=== PATIENT | male | born 1945 | race Caucasian/White ===

== ENCOUNTER 2017-01-14 05:12 | Emergency (ER) | payer MEDICARE ==
[~2017-01-14] VITALS: Ht 162.6 cm; Wt 84.0 kg
[~2017-01-14 05:12] MED LIST: ACIPHEX20 MG OR; AMOXICILLIN500 MG OR; AMOXICILLIN500 MG PO; ANTIVERT PO; ANTIVERT12.5 MG PO; AUGMENTIN875TAB PO; CEPHALEXIN500 MG PO; CHLOR-TRIMETON4 MG PO; CIPRODEX1 ML OT; CIPROFLOXACN500 MG PO; FLEXERIL OR; LOMOTIL2.5 MG PO; LORTAB 5-325 MG1 TAB PO; LORTAB5 OR; LORTAB5 PO; MUCINEX D1 TAB OR; NEXIUM20 M1 OR; NEXIUM40 M1 OR; NEXIUM40 M1 PO; ONDANSETRON4 MG PO; PEPCID40 MG OR; PREVACID30 M1 OR; PRILOSEC20 MG PO; PRILOSEC40 MG PO; ROBITUSSIN AC10 ML PO; ROBITUSSIN200 MG/10 PO; TAMSULOSIN0.4 MG PO; ULTRAM50 M1 PO; ULTRAM50 MG OR; XALATAN0.005 % OP; ZANTAC150 M1 PO; ZOFRAN ODT4 MG OR; ZOFRAN ODT4 MG PO
[2017-01-14 06:49] LABS: INFLUENZA A NONE DETECTED (NONE DETECT); INFLUENZA B NONE DETECTED (NONE DETECT)
[2017-01-14] MEDS ORDERED: FLONASE NASAL50 MCG (07:06)
[2017-01-14] MEDS ORDERED: ZITHROMAX250 MG PO (07:06)
[2017-01-14 07:44] VITALS: BP 149/78
== END 2017-01-14 07:44 | disposition home or self-care (01) ==
LOC: ED 05:12
PROVIDERS: Emergency Medicine
DX: J06.9 Acute upper respiratory infection, unspecified (principal); J32.9 Chronic sinusitis, unspecified; R09.81 Nasal congestion; R05 Cough

== ENCOUNTER 2017-02-28 09:07 | Emergency (ER) | payer MEDICARE ==
[~2017-02-28] VITALS: Ht 162.6 cm; Wt 82.0 kg
[~2017-02-28 09:07] MED LIST changes: +FLONASE NASAL50 MCG; +ZITHROMAX250 MG PO
[2017-02-28] MEDS ORDERED: OMEPRAZOLE10 MG PO (09:21)
[2017-02-28 09:44] LABS: HEMATOCRIT 43.7 % (39.0-50.0); HEMOGLOBIN 14.5 g/dl (14.0-18.0); IMMATURE GRANULOCYTES 0.2 % (0.0-1.0); MEAN CORPUSCULAR HGB 30.9 pG CALC (26.0-32.0); MEAN CORPUSCULAR HGB CONC 33.2 g/L CALC (32.0-36.0); NEUT# 6.71 thou/uL (1.82-7.42); RED BLOOD COUNT 4.7 mill/uL (4.70-6.10); RED CELL DISTRI WIDTH 12.1 % (11.5-15.5)
[2017-02-28 10:00] LABS: ALBUMIN 4.2 g/dL (3.2-5.0); ALKALINE PHOSPHATASE 74 u/l (38-126); AMYLASE 93 u/l (30-110); ANION GAP 15 (6-22 (CALC)); BILIRUBIN, TOTAL 0.6 mg/dL (0.0-1.4); BUN 17 mg/dL (8-23); BUN/CREATININE RATIO 15 (12-20 (CALC)); CALCIUM 9.4 mg/dL (8.4-10.2); CARBON DIOXIDE 23 mmol/l (22-30); CHLORIDE 104 mmol/l (95-108); CREATININE 1.1 mg/dL (0.7-1.3); GFR > 60 ML/MIN (>=60 (CALC)); GFR FOR AFR.AMER. > 60 ML/MIN (>=60 (CALC)); GLUCOSE 146 mg/dL (82-115); LIPASE 107 u/l (23-300); POTASSIUM 4.2 mmol/l (3.5-5.1); SGOT/AST 38 u/l (19-48); SGPT/ALT 32 u/l (11-66); SODIUM 138 mmol/l (137-146); TOTAL PROTEIN 7.2 g/dL (6.3-8.2)
[2017-02-28 10:13] LABS: MYOGLOBIN 54 ng/mL (0 - 121)
[2017-02-28 12:05] VITALS: BP 119/54
== END 2017-02-28 12:13 | disposition home or self-care (01) ==
LOC: ED 09:07
PROVIDERS: Emergency Medicine
DX: R10.13 Epigastric pain (principal); K29.70 Gastritis, unspecified, without bleeding; K43.9 Ventral hernia without obstruction or gangrene; K40.90 Unilateral inguinal hernia, without obstruction or gangrene, not specified as recurrent; K57.30 Diverticulosis of large intestine without perforation or abscess without bleeding; K21.9 Gastro-esophageal reflux disease without esophagitis; R11.0 Nausea
CPT/HCPCS: Q9967; S0164

== ENCOUNTER 2017-04-02 06:07 | Day surgery (SDC) | payer MEDICARE ==
[~2017-04-02] VITALS: Ht 162.6 cm; Wt 81.2 kg
[~2017-04-02 06:07] MED LIST changes: +CARAFATE PO; +OMEPRAZOLE10 MG PO; +PREVACID15 M3 PO
[2017-04-02 08:24] VITALS: BP 121/67
== END 2017-04-02 08:39 | disposition home or self-care (01) ==
LOC: ENDO 06:07 → ORM 11:15 → ENDO 11:15
PROVIDERS: ATTEND Internal Medicine Gastroenterology
PROC: 0DB48ZX Excision of Esophagogastric Junction, Via Natural or Artificial Opening Endoscopic, Diagnostic (ICD-10-PCS; principal; 2017-04-02)
DX: K21.0 Gastro-esophageal reflux disease with esophagitis (principal); R14.0 Abdominal distension (gaseous); R13.10 Dysphagia, unspecified; R10.13 Epigastric pain; K44.9 Diaphragmatic hernia without obstruction or gangrene; Q39.8 Other congenital malformations of esophagus; K29.70 Gastritis, unspecified, without bleeding; K22.8 Other specified diseases of esophagus; K57.90 Diverticulosis of intestine, part unspecified, without perforation or abscess without bleeding; Z86.010 Personal history of colon polyps

== ENCOUNTER 2017-05-24 06:21 | Day surgery (SDC) | payer MEDICARE ==
[~2017-05-24] VITALS: Ht 162.6 cm; Wt 81.6 kg
[~2017-05-24 06:21] MED LIST changes: +ARTIFICIAL TEAR1 OP; +ERYTHROMYCIN O3.5 GM OP
[2017-05-24] MEDS ORDERED: OXYCOD-APAP1 TAB PO (09:34)
[2017-05-24 10:14] VITALS: BP 157/73
== END 2017-05-24 10:18 | disposition home or self-care (01) ==
LOC: ORM 06:21
PROVIDERS: ATTEND Surgery
PROC: 0FT44ZZ Resection of Gallbladder, Percutaneous Endoscopic Approach (ICD-10-PCS; principal; 2017-05-24)
PROC: BF101ZZ Fluoroscopy of Bile Ducts using Low Osmolar Contrast (ICD-10-PCS; 2017-05-24)
DX: K81.1 Chronic cholecystitis (principal); K44.9 Diaphragmatic hernia without obstruction or gangrene; K21.0 Gastro-esophageal reflux disease with esophagitis; K29.70 Gastritis, unspecified, without bleeding; Q39.9 Congenital malformation of esophagus, unspecified
CPT/HCPCS: J2710; Q9967

== ENCOUNTER 2017-06-02 14:55 | Emergency (ER) | payer MEDICARE ==
[~2017-06-02] VITALS: Ht 162.6 cm; Wt 75.0 kg
[~2017-06-02 14:55] MED LIST changes: +OXYCOD-APAP1 TAB PO
[2017-06-02] MEDS ORDERED: KEFLEX500 M1 PO (15:39)
[2017-06-02 16:15] VITALS: BP 133/84
== END 2017-06-02 16:15 | disposition home or self-care (01) ==
LOC: ED 14:55
DX: Z48.02 Encounter for removal of sutures (principal); Z48.01 Encounter for change or removal of surgical wound dressing

== ENCOUNTER 2017-12-06 19:02 | Emergency (ER) | payer MEDICARE ==
[~2017-12-06] VITALS: Ht 162.6 cm; Wt 84.0 kg
[~2017-12-06 19:02] MED LIST changes: +KEFLEX500 M1 PO
[2017-12-06 20:45] LABS: HEMATOCRIT 40.1 % (39.0-50.0); HEMOGLOBIN 13.9 g/dl (14.0-18.0); IMMATURE GRANULOCYTES 0.2 % (0.0-1.0); MEAN CELL VOLUME 91.8 fL CALC (80.0-100.0); MEAN CORPUSCULAR HGB 31.8 pG CALC (26.0-32.0); MEAN CORPUSCULAR HGB CONC 34.7 g/L CALC (32.0-36.0); NEUT# 5.6 thou/uL (1.82-7.42); RED BLOOD COUNT 4.37 mill/uL (4.70-6.10); RED CELL DISTRI WIDTH 11.9 % (11.5-15.5)
[2017-12-06 20:46] LABS: URINE BILIRUBIN - DIPSTICK NEGATIVE (NEGATIVE); URINE BLOOD DIPSTICK NEGATIVE (NEGATIVE); URINE COLOR YELLOW; URINE GLUCOSE - DIPSTICK NEGATIVE (NEGATIVE); URINE KETONE NEGATIVE (NEGATIVE); URINE LEUK ESTERASE NEGATIVE (NEGATIVE); URINE NITRITE - DIPSTICK NEGATIVE (Negative); URINE PH 5.5 (4.5-8.0); URINE PROTEIN - DIPSTICK NEGATIVE (NEG-TRACE); URINE SPECIFIC GRAVITY 1.015; URINE UROBILINOGEN - DIPSTICK 0.2 E.U./dL (0.2)
[2017-12-06 20:47] LABS: URINE CLARITY CLEAR
[2017-12-06 20:57] LABS: ALBUMIN 4.1 g/dL (3.2-5.0); ALKALINE PHOSPHATASE 94 u/l (38-126); ANION GAP 16 (6-22 (CALC)); BILIRUBIN, TOTAL 0.3 mg/dL (0.0-1.4); BUN 14 mg/dL (8-23); BUN/CREATININE RATIO 13 (12-20 (CALC)); CARBON DIOXIDE 23 mmol/l (22-30); CHLORIDE 106 mmol/l (95-108); CREATININE 1.1 mg/dL (0.7-1.3); GFR > 60 ML/MIN (>=60 (CALC)); GFR FOR AFR.AMER. > 60 ML/MIN (>=60 (CALC)); POTASSIUM 4.1 mmol/l (3.5-5.1); SGOT/AST 40 u/l (19-48); SGPT/ALT 52 u/l (11-66); SODIUM 141 mmol/l (137-146); TOTAL PROTEIN 6.6 g/dL (6.3-8.2)
[2017-12-06] MEDS ORDERED: TORADOL PO (22:21)
[2017-12-06 22:36] VITALS: BP 142/79
== END 2017-12-06 22:44 | disposition home or self-care (01) ==
LOC: ED 19:02
PROVIDERS: Emergency Medicine
DX: K63.89 Other specified diseases of intestine (principal); R10.9 Unspecified abdominal pain

== ENCOUNTER 2018-02-07 12:29 | Observation (INO) | payer MEDICARE ==
[~2018-02-07] VITALS: Ht 162.6 cm; Wt 82.6 kg
[~2018-02-07 12:29] MED LIST changes: +TORADOL PO
--- NOTE | 2018-02-07 12:50 | NUR ---
PT AWARE OF BUSY ED AND NO AVAILABLE ROOMS AT THIS TIME. PT BACK TO WAITING ROOM WITH A STEADY GAIT TO AWAIT ROOM ASSIGNMENT.
--- NOTE | 2018-02-07 13:35 | NUR ---
PT AMBULATED TO ROOM WITH A STEADY GAIT.
--- NOTE | 2018-02-07 14:15 | NUR ---
IV ESTABLISHED. LABS DRAWN. EKG COMPLETED. @ BEDSIDE. PORT XR COMPLETED. PT C/O DIZZINESS OFF/ON x1+ WEEK. STATES HE WAKES UP WITH "YELLOW BOOGGIES" IN BOTH EYES. DENIES PAIN. DENIES SOB. DENIES COUGH. DENIES N/V/D. DENIES FALL OR LOC. @ BEDSIDE.
[2018-02-07 14:21] LABS: HEMOGLOBIN 14.2 g/dl (14.0-18.0); IMMATURE GRANULOCYTES 0.3 % (0.0-1.0); MEAN CELL VOLUME 92.7 fL CALC (80.0-100.0); MEAN CORPUSCULAR HGB 31.3 pG CALC (26.0-32.0); MEAN CORPUSCULAR HGB CONC 33.8 g/L CALC (32.0-36.0); NEUT# 6.13 thou/uL (1.82-7.42); RED BLOOD COUNT 4.53 mill/uL (4.70-6.10)
[2018-02-07 14:40] LABS: ALBUMIN 4.3 g/dL (3.2-5.0); ALKALINE PHOSPHATASE 79 u/l (38-126); ANION GAP 18 (6-22 (CALC)); BILIRUBIN, TOTAL 0.4 mg/dL (0.0-1.4); BUN 16 mg/dL (8-23); BUN/CREATININE RATIO 13 (12-20 (CALC)); CARBON DIOXIDE 25 mmol/l (22-30); CHLORIDE 101 mmol/l (95-108); CREATININE 1.2 mg/dL (0.7-1.3); GFR 60 ML/MIN (>=60 (CALC)); GFR FOR AFR.AMER. > 60 ML/MIN (>=60 (CALC)); POTASSIUM 4.4 mmol/l (3.5-5.1); SGOT/AST 41 u/l (19-48); SGPT/ALT 48 u/l (11-66); SODIUM 140 mmol/l (137-146); TOTAL PROTEIN 7.7 g/dL (6.3-8.2)
[2018-02-07 14:49] LABS: MYOGLOBIN 63 ng/mL (0 - 121)
--- NOTE | 2018-02-07 15:28 | NUR ---
PT UNABLE TO GIVE A URINE SAMPLE SINCE ARRIVAL GOING HOME TO GET SUPPLIES FOR PTS DENTURES, HIS PAJAMAS, & MED LIST.
--- NOTE | 2018-02-07 16:08 | NUR ---
SBAR PRINTED TO FLOOR
[2018-02-07] MEDS ORDERED: CHLOR-TRIMETON4 MG PO (16:11)
[2018-02-07] MEDS ORDERED: MECLIZINE25 MG PO (16:11)
--- NOTE | 2018-02-07 16:39 | NUR ---
DAUGHTER & @ BEDSIDE. PT DENIES S/S OF SYNCOPE SINCE ARRIVAL. WILL CONTINUE TO MONITOR. AWAITING ROOM ASSIGNMETN.
--- NOTE | 2018-02-07 16:53 | NUR ---
Admission Note Report Given to: Leticia Transported by: x Wheelchair Stretcher Transported with: x Nurse Transporter x Patent IV O2 x Raw Mill Operator
[2018-02-07 17:04] LABS: URINE BILIRUBIN - DIPSTICK NEGATIVE (NEGATIVE); URINE BLOOD DIPSTICK NEGATIVE (NEGATIVE); URINE COLOR YELLOW; URINE GLUCOSE - DIPSTICK NEGATIVE (NEGATIVE); URINE KETONE NEGATIVE (NEGATIVE); URINE LEUK ESTERASE NEGATIVE (NEGATIVE); URINE NITRITE - DIPSTICK NEGATIVE (Negative); URINE PROTEIN - DIPSTICK NEGATIVE (NEG-TRACE); URINE SPECIFIC GRAVITY <=1.005; URINE UROBILINOGEN - DIPSTICK 0.2 E.U./dL (0.2)
[2018-02-07 17:05] LABS: URINE CLARITY CLEAR
--- NOTE | 2018-02-07 17:05 | NUR ---
PT ARRIVED FROM ER VIA WC ACCOMPANIED BY STAFF. IV SITE IS FREE FROM REDNESS OR EDEMA. TELE MONITOR IN PLACE. PT IS AMBULATING IN THE ROOM.
--- NOTE | 2018-02-07 17:10 | NUR ---
PT TRANSFERED TO [facility] 269 IN STABLE CONDITION.
[2018-02-07 17:20] VITALS: BP 146/82
--- NOTE | 2018-02-07 17:30 | NUR ---
ASSESSMENT IS COMPLETED: IV SITE IS FREE FROM REDNESS OR EDEMA. HR IS REG,PULSES ARE STRONG X4, ABD IS SOFT WITH ACTIVE BS. CONTINUE TO OSBERVE AND MONITOR.
--- NOTE | 2018-02-07 19:00 | NUR ---
RECEIVED CHANGE OF SHIFT REPORT FROM DALLIN MOSLEY. PATIENT UP TO CHAIR IN ROOM. REPORTS HAVING SOME DISSINES WHENEVER HE GETS UP SUDDENLY. EDUCATE PT NO TO GET UP SLOWLY AND TO SIT AT BEDSIDE BEFORE STANDING UP. ORTHOSTATIC BP DONE: LYIN/71; SITTIN/83; & STANDING 148/81.
[2018-02-07 19:20] VITALS: BP 134/71
[2018-02-07 19:30] VITALS: BP 142/83
[2018-02-07 19:40] VITALS: BP 148/81
--- NOTE | 2018-02-07 19:50 | NUR ---
SPOKE WITH HIS AND MADE SURE SHE HAD THE CODE. IV SITE IS FREE FROM REDNESS OR EDEMA. CONTINUE TO OBSERVE AND MONITOR.
--- NOTE | 2018-02-08 | NUR ---
PATIENT RESTING QUIETLY. NO VOICED COMPLAINTS. NO APPATENT ACUTE DISTRESS NOTED.
[2018-02-08 00:20] VITALS: BP 112/62
--- NOTE | 2018-02-08 04:00 | NUR ---
PATIENT APPEARS TO BE ASLEEP QUIETLY. RESP EVEN AND NON-LABORED. NO APPARENT ACUTE CHANGES NOTED IN PT'S CONDITION.
[2018-02-08 04:20] VITALS: BP 113/65
[2018-02-08 07:55] VITALS: BP 138/72
--- NOTE | 2018-02-08 07:55 | NUR ---
PT IS SITTING UP IN THE CHAIR. NO DISTRESS NOTED. IV SITE IS FREE FROM REDNESS OR EDEMA. HR IS REG, PULSES ARE STRONG X4, ABD IS SOFT WITH ACTIVE BS. TELE MONITOR. CONTINUE TO OSBERVE AND MONITOR.
[2018-02-08 09:01] LABS: CHOLESTEROL HDL RATIO 4.6 (<4.4 (CALC))
[2018-02-08 09:22] LABS: TSH, 3RD GENERATION 2.39 uIU/mL (0.47 - 4.68)
[2018-02-08 11:31] VITALS: BP 145/73
--- NOTE | 2018-02-08 13:05 | NUR ---
PT RECEIVED DISCHARGE INSTRUCTIONS AND VERBALIZED UNDERSTANDING IV SITE DISCONTINUED CATHETER INTACT. NO REDNESS OR EDEMA. TELE MONITOR TAKEN OFF. CONTINUE TO OBSERVE AND MONITOR.
== END 2018-02-08 13:05 | disposition home or self-care (01) ==
LOC: ED 12:29 → ED-I 15:57 → ED 16:12 → MS2 16:13
PROVIDERS: Family Medicine; ADMIT Internal Medicine; ATTEND Internal Medicine
DX: R55 Syncope and collapse (principal); H40.9 Unspecified glaucoma; K21.9 Gastro-esophageal reflux disease without esophagitis; M19.90 Unspecified osteoarthritis, unspecified site; I25.10 Atherosclerotic heart disease of native coronary artery without angina pectoris; R42 Dizziness and giddiness; N40.1 Benign prostatic hyperplasia with lower urinary tract symptoms; R35.0 Frequency of micturition; R39.15 Urgency of urination; N39.43 Post-void dribbling; H61.23 Impacted cerumen, bilateral

== ENCOUNTER 2018-07-29 21:17 | Emergency (ER) | payer MEDICARE ==
[~2018-07-29] VITALS: Ht 162.6 cm; Wt 81.2 kg
[~2018-07-29 21:17] MED LIST changes: +MECLIZINE25 MG PO; -XALATAN0.005 % OP; +XALATAN0.005 % OU
[2018-07-29] MEDS ORDERED: PREVACID15 M1 PO (21:36)
[2018-07-29] MEDS ORDERED: PRED FORTE1 % OU (21:45)
[2018-07-29] MEDS ORDERED: BRIMONIDINE0.2 % OU (21:49)
[2018-07-29 21:55] VITALS: BP 156/75
== END 2018-07-29 21:55 | disposition home or self-care (01) ==
LOC: ED 21:17
DX: H10.13 Acute atopic conjunctivitis, bilateral (principal); M19.90 Unspecified osteoarthritis, unspecified site; K21.9 Gastro-esophageal reflux disease without esophagitis; I25.10 Atherosclerotic heart disease of native coronary artery without angina pectoris; H40.9 Unspecified glaucoma

== ENCOUNTER 2018-11-12 12:47 | Emergency (ER) | payer MEDICARE ==
[~2018-11-12] VITALS: Ht 162.6 cm; Wt 81.8 kg
[~2018-11-12 12:47] MED LIST changes: +BRIMONIDINE0.2 % OU; +PRED FORTE1 % OU; +PREVACID15 M1 PO
[2018-11-12] MEDS ORDERED: PRILOSEC20 MG PO (13:12)
[2018-11-12 13:20] LABS: HEMATOCRIT 40.9 % (39.0-50.0); HEMOGLOBIN 13.9 g/dl (14.0-18.0); IMMATURE GRANULOCYTES 0.2 % (0.0-5.0); MEAN CELL VOLUME 92.1 fL CALC (80.0-100.0); MEAN CORPUSCULAR HGB 31.3 pG CALC (26.0-32.0); NEUT# 5.73 thou/uL (1.82-7.42); RED BLOOD COUNT 4.44 mill/uL (4.70-6.10)
[2018-11-12 13:48] LABS: ANION GAP 16 (6-22 (CALC)); BUN 15 mg/dL (8-23); BUN/CREATININE RATIO 14 (12-20 (CALC)); CARBON DIOXIDE 22 mmol/l (22-30); CHLORIDE 105 mmol/l (95-108); GFR > 60 ML/MIN (>=60 (CALC)); GFR FOR AFR.AMER. > 60 ML/MIN (>=60 (CALC)); POTASSIUM 4.4 mmol/l (3.5-5.1); SODIUM 138 mmol/l (137-146)
[2018-11-12 15:37] VITALS: BP 125/60
== END 2018-11-12 15:41 | disposition home or self-care (01) ==
LOC: ED 12:47
PROVIDERS: Family Medicine
DX: R10.13 Epigastric pain (principal); R07.9 Chest pain, unspecified; R94.31 Abnormal electrocardiogram [ECG] [EKG]; I10 Essential (primary) hypertension; K21.9 Gastro-esophageal reflux disease without esophagitis
CPT/HCPCS: Q9967

== ENCOUNTER 2018-12-02 06:10 | Emergency (ER) | payer MEDICARE ==
[~2018-12-02] VITALS: Ht 162.6 cm; Wt 81.8 kg
[2018-12-02 07:06] LABS: URINE BILIRUBIN - DIPSTICK NEGATIVE (NEGATIVE); URINE BLOOD DIPSTICK NEGATIVE (NEGATIVE); URINE COLOR YELLOW; URINE GLUCOSE - DIPSTICK NEGATIVE (NEGATIVE); URINE KETONE NEGATIVE (NEGATIVE); URINE LEUK ESTERASE NEGATIVE (NEGATIVE); URINE NITRITE - DIPSTICK NEGATIVE (Negative); URINE PROTEIN - DIPSTICK NEGATIVE (NEG-TRACE); URINE UROBILINOGEN - DIPSTICK 0.2 E.U./dL (0.2)
[2018-12-02 07:06] LABS: HEMATOCRIT 41.3 % (39.0-50.0); HEMOGLOBIN 13.7 g/dl (14.0-18.0); IMMATURE GRANULOCYTES 0.2 % (0.0-5.0); MEAN CELL VOLUME 93.9 fL CALC (80.0-100.0); MEAN CORPUSCULAR HGB 31.1 pG CALC (26.0-32.0); MEAN CORPUSCULAR HGB CONC 33.2 g/L CALC (32.0-36.0); NEUT# 5.3 thou/uL (1.82-7.42); RED BLOOD COUNT 4.4 mill/uL (4.70-6.10); RED CELL DISTRI WIDTH 12.1 % (11.5-15.5)
[2018-12-02 07:19] LABS: ALBUMIN 4.1 g/dL (3.2-5.0); ALKALINE PHOSPHATASE 70 u/l (38-126); ANION GAP 14 (6-22 (CALC)); BILIRUBIN, TOTAL 0.5 mg/dL (0.0-1.4); BUN 16 mg/dL (8-23); BUN/CREATININE RATIO 15 (12-20 (CALC)); CARBON DIOXIDE 27 mmol/l (22-30); CHLORIDE 102 mmol/l (95-108); CREATININE 1.1 mg/dL (0.7-1.3); GFR > 60 ML/MIN (>=60 (CALC)); GFR FOR AFR.AMER. > 60 ML/MIN (>=60 (CALC)); POTASSIUM 4.3 mmol/l (3.5-5.1); SGOT/AST 29 u/l (19-48); SODIUM 139 mmol/l (137-146); TOTAL PROTEIN 6.7 g/dL (6.3-8.2)
[2018-12-02 07:31] LABS: MYOGLOBIN 39 ng/mL (0 - 121)
[2018-12-02 08:01] VITALS: BP 140/76
== END 2018-12-02 08:10 | disposition home or self-care (01) ==
LOC: ED 06:10
PROVIDERS: Family Medicine
DX: R42 Dizziness and giddiness (principal); I25.10 Atherosclerotic heart disease of native coronary artery without angina pectoris; K21.9 Gastro-esophageal reflux disease without esophagitis; R94.31 Abnormal electrocardiogram [ECG] [EKG]

== ENCOUNTER 2019-02-11 16:32 | Emergency (ER) | payer MEDICARE ==
[~2019-02-11] VITALS: Ht 162.6 cm; Wt 79.0 kg
[2019-02-11] MEDS ORDERED: LEVAQUIN500 MG PO (16:49)
[2019-02-11] MEDS ORDERED: PROVENTIL HFA IN (16:50)
[2019-02-11 16:53] VITALS: BP 134/77
== END 2019-02-11 16:53 | disposition home or self-care (01) ==
LOC: ED 16:32
DX: J06.9 Acute upper respiratory infection, unspecified (principal); J40 Bronchitis, not specified as acute or chronic; I25.10 Atherosclerotic heart disease of native coronary artery without angina pectoris

== ENCOUNTER 2019-07-02 13:33 | Emergency (ER) | payer MEDICARE ==
[~2019-07-02] VITALS: Ht 162.6 cm; Wt 80.0 kg
[~2019-07-02 13:33] MED LIST changes: +LEVAQUIN500 MG PO; +PROVENTIL HFA IN
[2019-07-02] MEDS ORDERED: KEFLEX500 M1 PO ×2 (14:19→14:31)
[2019-07-02 14:31] VITALS: BP 143/76
== END 2019-07-02 14:31 | disposition home or self-care (01) ==
LOC: ED 13:33
DX: L03.115 Cellulitis of right lower limb (principal)

== ENCOUNTER 2019-09-18 08:18 | Observation (INO) | payer MEDICARE ==
[~2019-09-18] VITALS: Ht 162.6 cm; Wt 82.0 kg
--- NOTE | 2019-09-18 08:20 | NUR ---
PT IMMEDIATELY TO ROOM FOR BEDSIDE TRIAGE
[2019-09-18 08:42] LABS: HEMATOCRIT 44.9 % (39.0-50.0); IMMATURE GRANULOCYTES 0.3 % (0.0-5.0); MEAN CELL VOLUME 92.4 fL CALC (80.0-100.0); MEAN CORPUSCULAR HGB 30.9 pG CALC (26.0-32.0); MEAN CORPUSCULAR HGB CONC 33.4 g/L CALC (32.0-36.0); NEUT# 6.28 thou/uL (1.82-7.42); RED BLOOD COUNT 4.86 mill/uL (4.70-6.10); RED CELL DISTRI WIDTH 11.9 % (11.5-15.5)
[2019-09-18 09:06] LABS: ANION GAP 15 (6-22 (CALC)); BUN 16 mg/dL (8-23); BUN/CREATININE RATIO 14 (12-20 (CALC)); CARBON DIOXIDE 23 mmol/l (22-30); CHLORIDE 103 mmol/l (95-108); CREATININE 1.2 mg/dL (0.7-1.3); GFR 59 ML/MIN (>=60 (CALC)); GFR FOR AFR.AMER. > 60 ML/MIN (>=60 (CALC)); POTASSIUM 4.2 mmol/l (3.5-5.1); SODIUM 137 mmol/l (137-146)
--- NOTE | 2019-09-18 09:30 | NUR ---
MEDICATED WITH ASPIRIN AND CARDIZEM IV ORDERED, CALL HERZOG WITHIN REACH.
--- NOTE | 2019-09-18 09:55 | NUR ---
SPOKEM WITH PT REGARDING LIVING WILL, HEALTH CARE SURROGATE ETC...ALL QUESTIONS ANSWERED AND CURRENTLY AT BEDSIDE.
[2019-09-18] MEDS ORDERED: NEOMYCIN/POLYMY1 SUS OU (10:01)
--- NOTE | 2019-09-18 11:18 | NUR ---
Admission Note Report Given to: DEBO Transported by: Wheelchair X Stretcher Transported with: X Nurse Transporter X Patent IV O2 X Mine Superintendent
--- NOTE | 2019-09-18 11:20 | NUR ---
AND DAUGHTER ACCOMPANIED PT TO FLOOR
--- NOTE | 2019-09-18 11:32 | NUR ---
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
[2019-09-18 11:45] VITALS: BP 161/85
--- NOTE | 2019-09-18 12:03 | NUR ---
LAB AT BEDSIDE
--- NOTE | 2019-09-18 12:12 | NUR ---
PT TRANSPOTED TO ECHO IN STABLE CONDITION VIA WHEELCHAIR ACCOMPANIED BY VOLUNTEER.
--- NOTE | 2019-09-18 12:47 | NUR ---
PT ARRIVED BACK TO MED/SURG ROOM 282 IN STABLE CONDITION VIA WHEELCHAIR ACCOMPANIED BY VOLUNTEER.
--- NOTE | 2019-09-18 14:13 | NUR ---
JORDON,ER PEER EDUCATOR CALLED TO NOTIFY NURSE THAT PT CONVERTED TO SR AT 1311.CONNER MACK,ANRP NOTIFIED AND NEW ORDER FOR EKG OBTAINED.WILL CONTINUE TO MONITOR
--- NOTE | 2019-09-18 14:21 | NUR ---
CONNER MACK,ANRP AT BEDSIDE
--- NOTE | 2019-09-18 15:02 | NUR ---
RT ANCELMO AT BEDSIDE OBTAINING EKG.
[2019-09-18 16:12] VITALS: BP 165/80
--- NOTE | 2019-09-18 17:00 | NUR ---
PT RESTING IN SEMI FOWLERS POSITION;PT DENIES ANY CURRENT PAIN OR DISCOMFORTS;RESPIRATIONS EVEN AND UNLABORED ON RA;TELE MONITORING IN PLACE;IV SITE TO RAC REMAINS PATENT;ASSESSMENT REMAINS UNCHANGED AT THIS TIME;ENCOURAGED PT TO CALL FOR ASSISTANCE IF NEEDED;CALL LIGHT IN REACH;WILL CONTINUE TO MONITOR
[2019-09-18 19:08] LABS: URINE BILIRUBIN - DIPSTICK NEGATIVE (NEGATIVE); URINE BLOOD DIPSTICK NEGATIVE (NEGATIVE); URINE COLOR YELLOW; URINE GLUCOSE - DIPSTICK NEGATIVE (NEGATIVE); URINE KETONE NEGATIVE (NEGATIVE); URINE LEUK ESTERASE NEGATIVE (NEGATIVE); URINE NITRITE - DIPSTICK NEGATIVE (Negative); URINE PROTEIN - DIPSTICK NEGATIVE (NEG-TRACE); URINE SPECIFIC GRAVITY 1.015; URINE UROBILINOGEN - DIPSTICK 0.2 E.U./dL (0.2)
--- NOTE | 2019-09-18 19:08 | NUR ---
RECEIVED REPORT FRTOM NURSE FRANCISCO PATIENT RESTING IN BED, WATCHING TV DENEIS PAIN OR DISCOMFORTS CALL LIGHT AT REACH.
[2019-09-18 19:40] VITALS: BP 148/89
--- NOTE | 2019-09-18 20:00 | NUR ---
PATIENT ALERT AND ORIENTED ABLE TO MAKE NEEDS KNOWN, AMBULATORY, REMAINS ON TELE SR 70, DENIES CHEST PAIN AT THIS TIME, WITH EVEN UNLABORED BREATHING, WITH SALINE LOCK ON RAC PATENT FLUSHES WELL, WILL CONTINUE TO MONITOR.
[2019-09-19 00:10] VITALS: BP 162/79
--- NOTE | 2019-09-19 00:55 | NUR ---
PATIENT AWAKE AT THIS TIME,DENIES PAIN OR DISCOMFORTS STATED IS JUST NOW READY FOR BED.CALL LIGHT AT REACH.
--- NOTE | 2019-09-19 04:03 | NUR ---
PATIENT APPEARS TO BE RESTING WITH EYES CLOSED, EASILY AWAKEN, DENIES PAIN OR DISCOMFORTS, WITH EVEN UNLABORED BREATHING CALL LIGHT AT REACH.
[2019-09-19 04:58] VITALS: BP 165/84
[2019-09-19 05:42] LABS: ANION GAP 15 (6-22 (CALC)); BUN 20 mg/dL (8-23); BUN/CREATININE RATIO 15 (12-20 (CALC)); CARBON DIOXIDE 24 mmol/l (22-30); CHLORIDE 103 mmol/l (95-108); CREATININE 1.3 mg/dL (0.7-1.3); GFR 54 ML/MIN (>=60 (CALC)); GFR FOR AFR.AMER. > 60 ML/MIN (>=60 (CALC)); HEMATOCRIT 43.1 % (39.0-50.0); HEMOGLOBIN 14.1 g/dl (14.0-18.0); IMMATURE GRANULOCYTES 0.2 % (0.0-5.0); MEAN CELL VOLUME 92.7 fL CALC (80.0-100.0); MEAN CORPUSCULAR HGB 30.3 pG CALC (26.0-32.0); MEAN CORPUSCULAR HGB CONC 32.7 g/L CALC (32.0-36.0); NEUT# 6.3 thou/uL (1.82-7.42); POTASSIUM 4.7 mmol/l (3.5-5.1); RED BLOOD COUNT 4.65 mill/uL (4.70-6.10); SODIUM 137 mmol/l (137-146)
[2019-09-19 05:43] VITALS: BP 148/82
[2019-09-19 05:48] LABS: CHOLESTEROL HDL RATIO 4.6 (<4.4 (CALC)); MAGNESIUM 2.2 mg/dL (1.6-2.3)
--- NOTE | 2019-09-19 07:05 | NUR ---
REPORT RECEIVED FROM JAZ VILLANUEVA;PT RESTING IN SEMI FOWLERS POSITION;INTRODUCED SELF TO PT AND POC DISCUSSED;RESPIRATIONS APPEAR EVEN AND UNLABORED ON RA;PT DENIES ANY CURRENT CHEST PRESSURE OR PAIN;TELE MONITORING IN PLACE;PT ENCOURAGED TO CALL FOR ASSISTANCE IF NEEDED;FALL PRECAUTIONS IN PLACE WITH BED IN THE LOWEST POSITION AND CALL LIGHT IN REACH;WILL CONTINUE TO MONITOR
[2019-09-19 08:58] VITALS: BP 153/92
--- NOTE | 2019-09-19 09:00 | NUR ---
PT OOB RESTING IN RECLINER WITH FAMILY AT BEDSIDE,A&O X3;VS OBTAINED AND ASSESSMENT COMPLETED;PT REPORTS EAGERNESS TO GO HOME, PT RE-ASSURED ON POC;PT DENIES ANY CURRENT CHEST PAIN OR PRESSURE,PAIN SCALE AND REPORTING EDUCATED;RESPIRATIONS EVEN AND UNLABORED ON RA,CLEAR LUNG SOUNDS;ABDOMEN SOFT ON PALPATION AND ACTIVE IN ALL 4 QUADRANTS;STRONG PEDAL PULSES WITH DISCOLORATION NOTED TO BLE;TELE MONITORING IN PLACE;#18G TO RAC FLUSHED AND PATENT,SITE APPEARS HEALTHY;PNEUMONIA VACCINE ADMINISTERED TO RIGHT ARM, CONSENT SIGNED AND PLACED IN CHART;PT DENIES ANY ADDITIONAL NEEDS AT THIS TIME AND IS ENCOURAGED TO CALL FOR ASSISTANCE IF NEEDED;CALL LIGHT IN REACH;WILL CONTINUE TO MONITOR
[2019-09-19 10:49] VITALS: BP 155/87
--- NOTE | 2019-09-19 10:51 | NUR ---
AT BEDSIDE DISCUSSING POC WITH PT AND FAMILY.
[2019-09-19] MEDS ORDERED: ELIQUIS5 MG PO (10:54)
[2019-09-19] MEDS ORDERED: LOPRESSOR25 MG PO (10:54)
--- NOTE | 2019-09-19 11:40 | NUR ---
ALL DISCHARGE INSTRUCTIONS PROVIDED AT THIS TIME;RX FOR METOPROLOL AND ELIQUS PROVIDED AND PT INSTRUCTED TO TAKE DIRECTED.PT INSTRUCTED TO MONITOR HR,BP AND FOLLOW UP WITH PCP;IV SITE REMOVED WITH CATHETER INTACT AND TELE MONITORING D/C;PT DENIES ANY ADDITIONAL NEEDS AT THIS TIME;WHEELCHAIR TO BE PROVIDED FOR D.C HOME;PT TO BE TRANSPORTED HOME BY SPOUSE.WORK RELEASE PROVIDED TO RETURN 09/20/19
--- NOTE | 2019-09-19 11:58 | NUR ---
Discharge instructions given. Patient verbalizes understanding of same. Discharged in stable condition via Ambulatory to Home with family. All belongings sent with pt. Pt ambulated with a steady gait to lobby for d/c home accompanied by family.
== END 2019-09-19 11:58 | disposition home or self-care (01) ==
LOC: ED 08:18 → ED-I 09:31 → ED 09:55 → MS2 09:56
PROVIDERS: Family Medicine; Nurse Practitioner Family; ADMIT Internal Medicine; ATTEND Internal Medicine
DX: I48.91 Unspecified atrial fibrillation (principal); I25.10 Atherosclerotic heart disease of native coronary artery without angina pectoris; K21.9 Gastro-esophageal reflux disease without esophagitis; N40.0 Benign prostatic hyperplasia without lower urinary tract symptoms; I73.9 Peripheral vascular disease, unspecified; H81.10 Benign paroxysmal vertigo, unspecified ear; Z87.891 Personal history of nicotine dependence; R07.9 Chest pain, unspecified
CPT/HCPCS: G0378

== ENCOUNTER 2019-09-23 21:36 | Emergency (ER) | payer MEDICARE ==
[~2019-09-23] VITALS: Ht 162.6 cm; Wt 90.0 kg
[~2019-09-23 21:36] MED LIST changes: +ELIQUIS5 MG PO; +LOPRESSOR25 MG PO; +NEOMYCIN/POLYMY1 SUS OU
[2019-09-23 22:20] LABS: HEMATOCRIT 40.7 % (39.0-50.0); HEMOGLOBIN 13.5 g/dl (14.0-18.0); IMMATURE GRANULOCYTES 0.2 % (0.0-5.0); MEAN CELL VOLUME 92.5 fL CALC (80.0-100.0); MEAN CORPUSCULAR HGB 30.7 pG CALC (26.0-32.0); MEAN CORPUSCULAR HGB CONC 33.2 g/L CALC (32.0-36.0); NEUT# 8.3 thou/uL (1.82-7.42); RED BLOOD COUNT 4.4 mill/uL (4.70-6.10); RED CELL DISTRI WIDTH 11.9 % (11.5-15.5)
[2019-09-23 22:43] LABS: ALBUMIN 4.3 g/dL (3.2-5.0); ALKALINE PHOSPHATASE 74 u/l (38-126); ANION GAP 15 (6-22 (CALC)); BILIRUBIN, TOTAL 0.4 mg/dL (0.0-1.4); BUN 18 mg/dL (8-23); BUN/CREATININE RATIO 14 (12-20 (CALC)); CARBON DIOXIDE 22 mmol/l (22-30); CHLORIDE 104 mmol/l (95-108); CREATININE 1.2 mg/dL (0.7-1.3); GFR 59 ML/MIN (>=60 (CALC)); GFR FOR AFR.AMER. > 60 ML/MIN (>=60 (CALC)); POTASSIUM 4.1 mmol/l (3.5-5.1); SGOT/AST 31 u/l (19-48); SODIUM 137 mmol/l (137-146); TOTAL PROTEIN 7.3 g/dL (6.3-8.2)
[2019-09-23 23:29] LABS: C. DIFFICILE TOXIN A&B NEGATIVE (NEGATIVE)
[2019-09-24] MEDS ORDERED: LOMOTIL2.5 MG PO (00:04)
[2019-09-24] MEDS ORDERED: LIBRAX1 CAP PO (00:04)
[2019-09-24 00:18] VITALS: BP 149/63
== END 2019-09-24 00:18 | disposition home or self-care (01) ==
LOC: ED 21:36
PROVIDERS: Family Medicine
DX: A08.4 Viral intestinal infection, unspecified (principal); I48.91 Unspecified atrial fibrillation; I25.10 Atherosclerotic heart disease of native coronary artery without angina pectoris

== ENCOUNTER 2019-12-02 | Inpatient (IN) | payer MEDICARE ==
--- NOTE | 2019-12-01 21:39 | NUR ---
PATIENT AMBULATORY TO ROOM 12. UNDRESSED INTO A GOWN. AWAITING MD VILLEDA.
--- NOTE | 2019-12-01 22:24 | NUR ---
URINE COLLECTED AND PT MEDICATED FOR PAIN 2/10 SHARP CRAMPY PAIN AND NAUSEA.
[2019-12-01 22:27] LABS: HEMOGLOBIN 14.5 g/dl (14.0-18.0); IMMATURE GRANULOCYTES 0.3 % (0.0-5.0); MEAN CELL VOLUME 91.5 fL CALC (80.0-100.0); MEAN CORPUSCULAR HGB 30.1 pG CALC (26.0-32.0); NEUT# 9.73 thou/uL (1.82-7.42); RED BLOOD COUNT 4.81 mill/uL (4.70-6.10); RED CELL DISTRI WIDTH 12.3 % (11.5-15.5)
[2019-12-01 22:35] LABS: URINE BILIRUBIN - DIPSTICK NEGATIVE (NEGATIVE); URINE BLOOD DIPSTICK NEGATIVE (NEGATIVE); URINE COLOR YELLOW; URINE GLUCOSE - DIPSTICK NEGATIVE (NEGATIVE); URINE KETONE NEGATIVE (NEGATIVE); URINE LEUK ESTERASE NEGATIVE (NEGATIVE); URINE NITRITE - DIPSTICK NEGATIVE (Negative); URINE PH 5.5 (4.5-8.0); URINE PROTEIN - DIPSTICK NEGATIVE (NEG-TRACE); URINE UROBILINOGEN - DIPSTICK 0.2 E.U./dL (0.2)
[2019-12-01 22:38] LABS: ALBUMIN 4.5 g/dL (3.2-5.0); ALKALINE PHOSPHATASE 82 u/l (38-126); AMYLASE 92 u/l (30-110); BUN 17 mg/dL (8-23); BUN/CREATININE RATIO 15 (12-20 (CALC)); CHLORIDE 101 mmol/l (95-108); CREATININE 1.1 mg/dL (0.7-1.3); GFR > 60 ML/MIN (>=60 (CALC)); GFR FOR AFR.AMER. > 60 ML/MIN (>=60 (CALC)); LIPASE 124 u/l (23-300); POTASSIUM 3.9 mmol/l (3.5-5.1); SGOT/AST 34 u/l (19-48); SODIUM 137 mmol/l (137-146); TOTAL PROTEIN 7.7 g/dL (6.3-8.2)
[2019-12-01 22:44] LABS: ANION GAP 13 (6-22 (CALC)); BILIRUBIN, TOTAL 0.7 mg/dL (0.0-1.4); CARBON DIOXIDE 27 mmol/l (22-30)
--- NOTE | 2019-12-01 23:19 | NUR ---
PT STATES NO CHANGE IN PAIN. TO CT.
--- NOTE | 2019-12-01 23:39 | NUR ---
PT BACK FROM CT WAITING ON RESULTS.
[~2019-12-02] MED LIST changes: +LIBRAX1 CAP PO
--- NOTE | 2019-12-02 00:01 | NUR ---
DR ARGUELLES IN TO GO OVER RESULTS WITH PT.
--- NOTE | 2019-12-02 00:18 | NUR ---
ARPITAAR SENT TO M/S
--- NOTE | 2019-12-02 00:40 | NUR ---
PT MEDICATED WITH MORPHINE FOR PAIN 06/10 PT DID NOT LIKE THE SENSATION FROM MEDICATION, PT INSTRUCTED TO TAKE SLOW BREATHS AND NOT TO MAKE ANY SUDDEN MOVEMENTS WITH HIS HEAD. SENSATION PASSED AFTER A FEW MINUTES
--- NOTE | 2019-12-02 01:39 | NUR ---
REPORT REC FROM MELITA SEBASTIAN
--- NOTE | 2019-12-02 01:40 | NUR ---
REPORT GIVEN TO CHELY, SHOE CLERK WILL TAKE UPSTAIRS AFTER NG TUBE PLACED.
--- NOTE | 2019-12-02 02:14 | NUR ---
NGT PLACED TO RIGHT NARES. PT TOLERATED WITH MINIMAL DISCOMFORT. WILL MONITOR FOR BP PRIOR TO TRANSPORTING TO FLOOR.
--- NOTE | 2019-12-02 02:50 | NUR ---
MEDICATED PT WITH LABETALOL FOR B/P 213/91. PT'S BP DROPPED TO 75/41 AT 0235 PT VOMITED AROUND NGTUBE AND FELT "VERY BAD" HUNG LITER NS WIDE OPEN AND PT'S B/P BACK UP TO 163/83 AND HR TO 64 AT 0242. STOPPED IV. PT IS VERY SENSITIVE TO MEDICATIONS.
--- NOTE | 2019-12-02 03:25 | NUR ---
PT STATUS UPDATE REC FROM MELITA SEBASTIAN
--- NOTE | 2019-12-02 03:27 | NUR ---
PT STABLE FEELS BETTER. BP 1528/67 HR 61. CALLED AND UPDATED CHELY ON EVENTS. Admission Note Report Given to: DALLIN MO Transported by: X Wheelchair Stretcher Transported with: X Nurse Transporter X Patent IV O2 Patient Assessment Coordinator Location: ICU X MS2 NG TUBE CLAMPED FOR TRANSPORT.
[2019-12-02 03:34] VITALS: BP 133/67
--- NOTE | 2019-12-02 03:34 | NUR ---
PT ARRIVED TO MS VIA WC ACCOMPANIED BY LUKE SEBASTIAN. A&O X3. NO DISTRESS NOTED. NG TUBE IN PLACE IN RT NARE. CONNECTED TO LOW INTERMITTENT SUCTION. OUTPUT 280 CC AFTER CONECTING WITH YELLOW FLUID NOTED. EXPLAINED TO PT THAT HE WAS TO BE NPO, PT VERBALIZED UNDERSTANDING. RESP EVEN AND UNLABORED, CLEAR UPON AUSCULTATION. NO CURRENT EPISODES OF VOMITING AT THIS TIME. PT DENIES NAUSEA. [facility] APPLIED. ORIENTED PT TO ROOM AND GAVE INSTRUCTIONS TO CALL IF HE HAD TO GET UP. ASSESSMENT COMPLETED. DISCUSSED POC.CALL LIGHT IN REACH. CONTINUE TO MONITOR.
[2019-12-02 09:00] VITALS: BP 156/74
--- NOTE | 2019-12-02 09:00 | NUR ---
ASSESSMENT IS COMPLETED: IV SITE IS FREE FROM REDNESS OR EDEMA. HR IS REG,PULSES ARE STRONG X4, ABD IS SOFT WITH ACTIVE BS. NGT IN PLACE DRAINING YELLOW FLUID. PT C/O TUBE IN BACK OF HIS THROAT. BREATH SOUNDS ARE CLEAR,BILATERALLY,. CONTINUE TO OSBERVE AND MONITOR.
--- NOTE | 2019-12-02 11:45 | NUR ---
DR DEAN IN TO VISIT WITH PT. DISCONTINUED NGT AND TOLD PT ABLE TO HAVE CLEAR LIQUIDS. FAMILY IN THE ROOM. CONTINUE TO OBSERVE AND MONITOR.
--- NOTE | 2019-12-02 12:40 | NUR ---
PT IS RELAXING IN THECHAIR VISITING WITH FAMILY NO DISTRESS NOTED. IV SITE IS FREE FROM REDNESS OR EDEMA. CONTINUE TO OBSERVE AND MONITOR.
[2019-12-02 15:35] VITALS: BP 112/56
--- NOTE | 2019-12-02 16:40 | NUR ---
PT IS RELAXING IN BED WITH NO DISTRESS NOTED. IV SITE IS FREE FROM REDNESS OR EDEMA
[2019-12-02 18:48] VITALS: BP 166/71
--- NOTE | 2019-12-02 20:18 | NUR ---
PT SITTING IN BED WATCHING TV. A&O X3. NO DISTRESS NOTED. PT DENIES N/V. DENIES FEELING BLOATED AT THIS TIME. PER PT HE HAS BEEN PASSING GAS WITHOUT ANY COMPLICATIONS. NO OTHER NEEDS AT THIS TIME. DISCUSSED POC. ASSESSMENT COMPLETED. CALL LIGHT IN REACH. CONTINUE TO MONITOR.
--- NOTE | 2019-12-02 21:28 | NUR ---
PT LAYING IN BED WATCHING TV. PT DENIES ANY ABD BLOATING OR NAUSEA AT THIS TIME. CALL LIGHT IN REACH CONTINUE TO MONITOR.
--- NOTE | 2019-12-03 02:11 | NUR ---
PT SLEEPING IN BED. NO DISTRESS NOTED. RESP EVEN AND UNLABORED. CONTINUE TO MONITOR.
[2019-12-03 04:41] VITALS: BP 120/67
[2019-12-03 06:07] LABS: MEAN CELL VOLUME 93.5 fL CALC (80.0-100.0); MEAN CORPUSCULAR HGB 30.1 pG CALC (26.0-32.0); MEAN CORPUSCULAR HGB CONC 32.2 g/L CALC (32.0-36.0); RED BLOOD COUNT 3.99 mill/uL (4.70-6.10); RED CELL DISTRI WIDTH 12.3 % (11.5-15.5)
[2019-12-03 06:09] LABS: HEMATOCRIT 37.3 % (39.0-50.0)
[2019-12-03 06:21] LABS: ANION GAP 9 (6-22 (CALC)); BUN 12 mg/dL (8-23); BUN/CREATININE RATIO 12 (12-20 (CALC)); CARBON DIOXIDE 25 mmol/l (22-30); CHLORIDE 108 mmol/l (95-108); GFR > 60 ML/MIN (>=60 (CALC)); GFR FOR AFR.AMER. > 60 ML/MIN (>=60 (CALC)); POTASSIUM 4.2 mmol/l (3.5-5.1); SODIUM 138 mmol/l (137-146)
[2019-12-03 08:30] VITALS: BP 181/75
--- NOTE | 2019-12-03 08:30 | NUR ---
ASSESSMENT IS COMPLETED: IV SITE IS FREE FROM REDNESS OR EDEMA. HR IS REG,PULSES ARE STRONG X4, ABD IS SOFT WITH ACTIVE BS. BREATH SOUNDS ARE CLEAR BILATERALLY, TELE MONITOR IN PLACE. PT HAD A BM THIS AM.
[2019-12-03 11:12] VITALS: BP 126/61
--- NOTE | 2019-12-03 12:00 | NUR ---
PT IS RELAXING IN BED WITH NO DISTRESS NOTED. IV SITE IS FREE FROM REDNESS OR EDEMA. FAMILY IN THE ROOM.
--- NOTE | 2019-12-03 14:30 | NUR ---
DR PIERCE AND CLAUDE BAIRD IN TO VISIT WITH PT. IV SITE DISCONTINUED CATHETER INTACT. DR DEAN IN TO VISIT WITH PT. AND INCREASED HIS DIET.
--- NOTE | 2019-12-03 14:40 | NUR ---
DISCHARGE INSTRUCTIONS GIVEN AND VERBALIZED UNDERSTANDING. NO DISTRESS NOTED. FAMILY IN THE ROOM.
--- NOTE | 2019-12-03 14:44 | NUR ---
PT AMBULATED OFF THE UNIT. WITH FAMILY NO DISTRESS NOTED. WILL FOLLOW UP WITH JUNIOR DATABASE ADMINISTRATOR THIS WEEK FOR STRESS TEST RESULTS. WILL HAVE RECORDS SENT TO THE PHYSICIANS OFFICE. CONTINUE TO OBSERVE AND MONITOR.
== END 2019-12-03 14:42 | disposition home or self-care (01) | DRG 390 ==
PROVIDERS: Family Medicine; Nurse Practitioner Family; ADMIT Internal Medicine
DX: K56.51 Intestinal adhesions [bands], with partial obstruction (principal); K43.9 Ventral hernia without obstruction or gangrene; I10 Essential (primary) hypertension; I25.10 Atherosclerotic heart disease of native coronary artery without angina pectoris; I48.91 Unspecified atrial fibrillation; K21.9 Gastro-esophageal reflux disease without esophagitis; N40.0 Benign prostatic hyperplasia without lower urinary tract symptoms; M19.90 Unspecified osteoarthritis, unspecified site; Z87.891 Personal history of nicotine dependence; Z79.01 Long term (current) use of anticoagulants
CPT/HCPCS: Q9967; S0164

== ENCOUNTER 2020-02-03 | Emergency (ER) | payer MEDICARE ==
[2020-02-03 14:54] LABS: HEMATOCRIT 40.6 % (39.0-50.0); HEMOGLOBIN 13.3 g/dl (14.0-18.0); IMMATURE GRANULOCYTES 0.2 % (0.0-5.0); MEAN CELL VOLUME 91.9 fL CALC (80.0-100.0); MEAN CORPUSCULAR HGB 30.1 pG CALC (26.0-32.0); MEAN CORPUSCULAR HGB CONC 32.8 g/dL CAL (32.0-36.0); NEUT# 5.34 thou/uL (1.82-7.42); RED BLOOD COUNT 4.42 mill/uL (4.70-6.10); RED CELL DISTRI WIDTH 12.6 % (11.5-15.5)
[2020-02-03 14:55] LABS: ALKALINE PHOSPHATASE 71 u/l (38-126); AMYLASE 76 u/l (30-110); ANION GAP 11 (6-22 (CALC)); BUN 13 mg/dL (8-23); BUN/CREATININE RATIO 11 (12-20 (CALC)); CARBON DIOXIDE 28 mmol/l (22-30); CHLORIDE 102 mmol/l (95-108); CREATININE 1.2 mg/dL (0.7-1.3); GFR 59 ML/MIN (>=60 (CALC)); GFR FOR AFR.AMER. > 60 ML/MIN (>=60 (CALC)); LIPASE 156 u/l (23-300); POTASSIUM 3.8 mmol/l (3.5-5.1); SGOT/AST 31 u/l (19-48); SODIUM 136 mmol/l (137-146); TOTAL PROTEIN 6.7 g/dL (6.3-8.2)
[2020-02-03 15:02] LABS: BILIRUBIN, TOTAL 0.4 mg/dL (0.0-1.4)
[2020-02-03 15:07] LABS: MYOGLOBIN 33 ng/mL (0 - 121)
[2020-02-03] MEDS ORDERED: CIMETIDINE800 MG PO (15:30)
== END 2020-02-03 15:36 | disposition home or self-care (01) ==
PROVIDERS: Family Medicine
DX: K21.9 Gastro-esophageal reflux disease without esophagitis (principal); I10 Essential (primary) hypertension

== ENCOUNTER 2020-09-22 16:11 | Emergency (ER) | payer MEDICARE ==
[~2020-09-22] VITALS: Ht 162.6 cm; Wt 75.0 kg
[~2020-09-22 16:11] MED LIST changes: +CIMETIDINE800 MG PO
[2020-09-22] MEDS ORDERED: PEPCID20 MG PO (16:47)
[2020-09-22] MEDS ORDERED: PRAVASTATIN SOD20 MG PO (16:48)
[2020-09-22] MEDS ORDERED: METOPROL TAR25 MG PO (16:49)
[2020-09-22] MEDS ORDERED: CLOPIDOGREL75 MG PO (16:49)
[2020-09-22] MEDS ORDERED: ALLERGY TABLETS4 MG PO (16:52)
[2020-09-22] MEDS ORDERED: MAGNESIUM296 ML/BTL PO (16:54)
[2020-09-22] MEDS ORDERED: FLEET ENEMA RE (16:54)
[2020-09-22] MEDS ORDERED: HYDROCORTISONE12 PR (16:58)
[2020-09-22 17:11] VITALS: BP 171/76
== END 2020-09-22 17:11 | disposition home or self-care (01) ==
LOC: ED 16:11
DX: S30.817A Abrasion of anus, initial encounter (principal); K59.00 Constipation, unspecified; K64.9 Unspecified hemorrhoids; I10 Essential (primary) hypertension; X58.XXXA Exposure to other specified factors, initial encounter

== ENCOUNTER 2020-12-08 14:13 | Emergency (ER) | payer MEDICARE ==
[~2020-12-08] VITALS: Ht 162.6 cm; Wt 81.0 kg
[~2020-12-08 14:13] MED LIST changes: +ALLERGY TABLETS4 MG PO; +CLOPIDOGREL75 MG PO; +FLEET ENEMA RE; +HYDROCORTISONE12 PR; +MAGNESIUM296 ML/BTL PO; +METOPROL TAR25 MG PO; +PEPCID20 MG PO; +PRAVASTATIN SOD20 MG PO
[2020-12-08 14:56] LABS: HEMATOCRIT 40.4 % (39.0-50.0); HEMOGLOBIN 13.2 g/dl (14.0-18.0); IMMATURE GRANULOCYTES 0.2 % (0.0-5.0); MEAN CELL VOLUME 93.1 fL CALC (80.0-100.0); MEAN CORPUSCULAR HGB 30.4 pG CALC (26.0-32.0); MEAN CORPUSCULAR HGB CONC 32.7 g/dL CAL (32.0-36.0); NEUT# 5.61 thou/uL (1.82-7.42); RED BLOOD COUNT 4.34 mill/uL (4.70-6.10)
[2020-12-08 15:13] LABS: ALBUMIN 4.2 g/dL (3.2-5.0); ALKALINE PHOSPHATASE 60 u/l (38-126); AMYLASE 98 u/l (30-110); ANION GAP 12 (6-22 (CALC)); BILIRUBIN, TOTAL 0.4 mg/dL (0.0-1.4); BUN 19 mg/dL (8-23); BUN/CREATININE RATIO 13 (12-20 (CALC)); CARBON DIOXIDE 24 mmol/l (22-30); CHLORIDE 103 mmol/l (95-108); CREATININE 1.4 mg/dL (0.7-1.3); GFR 49 ML/MIN (>=60 (CALC)); GFR FOR AFR.AMER. 60 ML/MIN (>=60 (CALC)); LIPASE 156 u/l (23-300); POTASSIUM 4.2 mmol/l (3.5-5.1); SGOT/AST 37 u/l (19-48); SODIUM 134 mmol/l (137-146); TOTAL PROTEIN 7.1 g/dL (6.3-8.2)
[2020-12-08 15:34] LABS: URINE BILIRUBIN - DIPSTICK NEGATIVE (NEGATIVE); URINE BLOOD DIPSTICK NEGATIVE (NEGATIVE); URINE COLOR YELLOW; URINE GLUCOSE - DIPSTICK NEGATIVE (NEGATIVE); URINE KETONE NEGATIVE (NEGATIVE); URINE LEUK ESTERASE NEGATIVE (NEGATIVE); URINE NITRITE - DIPSTICK NEGATIVE (Negative); URINE PROTEIN - DIPSTICK NEGATIVE (NEG-TRACE); URINE SPECIFIC GRAVITY <=1.005; URINE UROBILINOGEN - DIPSTICK 0.2 E.U./dL (0.2)
[2020-12-08] MEDS ORDERED: LOMOTIL2.5 MG PO (16:03)
[2020-12-08] MEDS ORDERED: PROTONIX40 M2 PO (16:03)
[2020-12-08 16:29] VITALS: BP 168/76
== END 2020-12-08 16:30 | disposition home or self-care (01) ==
LOC: ED 14:13
DX: K21.9 Gastro-esophageal reflux disease without esophagitis (principal); R19.7 Diarrhea, unspecified; K43.9 Ventral hernia without obstruction or gangrene; I10 Essential (primary) hypertension; Z90.49 Acquired absence of other specified parts of digestive tract; Z79.899 Other long term (current) drug therapy
CPT/HCPCS: Q9967

== ENCOUNTER 2021-04-06 11:21 | Observation (INO) | payer MEDICARE ==
[~2021-04-06] VITALS: Ht 162.6 cm; Wt 81.0 kg
[~2021-04-06 11:21] MED LIST changes: +PROTONIX40 M2 PO
--- NOTE | 2021-04-06 11:25 | NUR ---
PT AMBULATORY TO ROOM # 9 FOR BEDSIDE TRIAGE.
[2021-04-06 11:53] LABS: HEMATOCRIT 39.9 % (39.0-50.0); HEMOGLOBIN 13.1 g/dl (14.0-18.0); IMMATURE GRANULOCYTES 0.2 % (0.0-5.0); MEAN CELL VOLUME 92.1 fL CALC (80.0-100.0); MEAN CORPUSCULAR HGB 30.3 pG CALC (26.0-32.0); MEAN CORPUSCULAR HGB CONC 32.8 g/dL CAL (32.0-36.0); NEUT# 5.84 thou/uL (1.82-7.42); RED BLOOD COUNT 4.33 mill/uL (4.70-6.10); RED CELL DISTRI WIDTH 11.9 % (11.5-15.5)
[2021-04-06 12:21] LABS: ALBUMIN 3.9 g/dL (3.2-5.0); ALKALINE PHOSPHATASE 54 u/l (38-126); AMYLASE 111 u/l (30-110); BUN 14 mg/dL (8-23); BUN/CREATININE RATIO 11 (12-20 (CALC)); CHLORIDE 99 mmol/l (95-108); CREATININE 1.4 mg/dL (0.7-1.3); GFR 49 ML/MIN (>=60 (CALC)); GFR FOR AFR.AMER. 60 ML/MIN (>=60 (CALC)); LIPASE 287 u/l (23-300); SGOT/AST 55 u/l (19-48); SODIUM 134 mmol/l (137-146); TOTAL PROTEIN 7.4 g/dL (6.3-8.2)
[2021-04-06 12:22] LABS: ANION GAP 10 (6-22 (CALC)); BILIRUBIN, TOTAL 0.8 mg/dL (0.0-1.4); CARBON DIOXIDE 29 mmol/l (22-30)
--- NOTE | 2021-04-06 12:30 | NUR ---
RESTING ON STRETCHER. CALL HERZOG WITHIN REACH. AWAITING CT
[2021-04-06 12:32] LABS: MYOGLOBIN 88 ng/mL (0 - 121)
--- NOTE | 2021-04-06 13:30 | NUR ---
RETURNED FROM XRAY. DENIES COMPLAINTS. CALL HERZOG WITHIN REACH. WILL AWAIT RESULTS OF TESTING. PT REQUESTING SOMETHING TO DRINK.
[2021-04-06 14:09] LABS: URINE BILIRUBIN - DIPSTICK NEGATIVE (NEGATIVE); URINE BLOOD DIPSTICK TRACE-LYSED (NEGATIVE); URINE COLOR YELLOW; URINE GLUCOSE - DIPSTICK NEGATIVE (NEGATIVE); URINE KETONE NEGATIVE (NEGATIVE); URINE LEUK ESTERASE NEGATIVE (NEGATIVE); URINE PROTEIN - DIPSTICK NEGATIVE (NEG-TRACE); URINE SPECIFIC GRAVITY 1.015
[2021-04-06 14:11] LABS: URINE NITRITE - DIPSTICK NEGATIVE (Negative)
--- NOTE | 2021-04-06 14:29 | NUR ---
PHYSICIAN TO DISCUSS POSSIBLE ADMIT WITH PT AND ADMITTING PHYSICIAN. PT RESTING ON STRETCHER. CALL HERZOG WITHIN REACH
--- NOTE | 2021-04-06 15:30 | NUR ---
RESTING ON STRETCHER. CALL HERZOG WITHIN REACH. AWAITING BED ASSIGNMENT
--- NOTE | 2021-04-06 16:03 | NUR ---
REPORT REC FROM PATRICIA SEBASTIAN
--- NOTE | 2021-04-06 16:08 | NUR ---
REPORT CALLED TO JAZ AGUIRRE. PT TO BE TRANSFERRED TO IDU 3 ON TELE. AWAITING ADMIT ORDERS FOR TRANSPORT
--- NOTE | 2021-04-06 16:24 | NUR ---
TRANSPORT TO FLOOR IN STABLE CONDITION ON CIGARETTE MACHINE FILLER WITH JAZ CLINE
[2021-04-06 16:50] VITALS: BP 142/64
--- NOTE | 2021-04-06 16:50 | NUR ---
PT ARRIVED VIA STRETCHER WITH O2 VIA NC @2L ACCOMPANIED BY Hilda WYNN RN. PT A&O X4. NO DISTRESS NOTED. VIA ROOM AIR PT SUSTAINING 96-97%, O2 VIA NC SET AT 2L AT BEDSIDE IF SUPPLEMENTAL O2 IS NEEDED, O2 TO BE CONTINUOUSLY MONITORED. CLEAR/DIMINISHED BREATH SOUNDS HEARD UPON AUSCULTATION. CURRENTLY SR ON BIOMATERIALS ENGINEER, 66 BPM. ACTIVE BOWEL SOUNDS X4 QUADRANTS. BM REPORTED TODAY 04/06/21. PT REPORTS DIARRHEA. CARDIAC STENTS PLACED "A WHILE BACK", PT IS TAKING PLAVIX AND LOPRESSOR. STRONG PEDAL PULSES FELT. ASSESSMENT COMPLETED. DISCUSSED POC. ISOLATION PRECAUTIONS IN PLACE. CALL LIGHT WITHIN REACH.
--- NOTE | 2021-04-06 19:43 | NUR ---
RECEIVED REPORT FROM NURSE CHELY, ASSUMED PATIENT CARE, PATIENT CURRENTLY RESTING IN BED DENIES PAIN OR DISCOMFORT, BREATHING EVEN UNLABORED, CALL LIGHT AT REACH.
[2021-04-06 20:00] VITALS: BP 138/59
--- NOTE | 2021-04-06 20:00 | NUR ---
PATIENT ALERT ORIENTED. WITH ONGOING WITH ONGOING IV OF NS @ 80CC/HR INFUSING WELL ON LAC, REMAINS ON TELEMETRY SR 65, DENIES PAIN OR DISCOMFORTS, DIMINISHED LUNG SOUNDS, OCCASIONAL NON PRODUCTIVE COUGH, BREATHING SHALLOW, UNLABORED, ACTIVE BOWEL SOUNDS, LBM 6/6, USES URINAL TO VOID, URINE GIBRAN IN COLOR, WEAK PEDAL PULSES, CALL LIGHT AT REACH.
[2021-04-07] VITALS: BP 132/65
--- NOTE | 2021-04-07 | NUR ---
PATIENT RESTING IN BED, WITH EYES CLOSED, BREATHING EVEN UNLABORED, CALL LIGHT IN REACH.
[2021-04-07 04:00] VITALS: BP 129/58
--- NOTE | 2021-04-07 04:11 | NUR ---
PATIENT SITTING IN BED,AWAKE AT THIS TIME USINH HIS URINAL, DENIES PAIN OR DISCOMFORTS BREATHIG UNLABORED, CALL LIGHT AT REACH.
--- NOTE | 2021-04-07 07:00 | NUR ---
RECIEVED REPORT FROM JAZ PAYTON
[2021-04-07 08:19] VITALS: BP 173/75
--- NOTE | 2021-04-07 08:19 | NUR ---
PT TRANSFERED TO MS ROOM 290 IN STABLE CONDITION. PT IS A/O X3.ASSESSMENT AND VITALS COMPLETED. BP 173/75, HR 90, O2 95% ON ROOM AIR. RESPIRATIONS ARE EVEN AND UNLABORED WITH NO DISTRSS NOTED. LUNG SOUNDS ARE DIMINISHED. BOWEL SOUNDS ARE ACTIVE.HEART RHYTHM NORMAL. TELE MONITORING PLACED. RADIAL AND PEDAL PULSES STRONG. #20G IN LAC INFUSING WITH IVF PER ORDER, SITE REMAINS HEALTHY AND PATENT. SKIN INTACT. PT COMPLAINS OF NAUSEA, ORDERS TO BE OBTAINED. PT DENIES OF ANY PAINS OR DISCOMFORTS AT THIS TIME. ALL SAFETY PRECAUTIONS ARE IN PLACE WITH CALL LIGHT IN REACH. PRECAUTIONS IN PLACE. ENCOURAGED PT TO CALL FOR ASSISTANCE. WILL CONTINUE TO MONITOR.
--- NOTE | 2021-04-07 09:16 | NUR ---
RECEIVED CONSULT FROM DR TAO FOR RETACRIT PHARMACY TO DOSE. PTS BP HAS BEEN UNCONTROLLED, IN THE 160S/90S. MOST RECENT BP THIS AM WAS 140/79. CONTACTED DR TAO, HE ADVISED TO HOLD RETACRIT AT THIS TIME.
--- NOTE | 2021-04-07 09:26 | NUR ---
ZOFRAN ADMINISTERED FOR NAUSEA, PT TOLERATED WELL
--- NOTE | 2021-04-07 10:21 | NUR ---
UPDATED OF PT STATUS. PASSCODE PROVIDED.
[2021-04-07 11:05] VITALS: BP 153/71
--- NOTE | 2021-04-07 11:05 | NUR ---
REASSESSMENT OF BP REUSLTING IN 153/71, HR 65. PT REMAINS RESTING IN SEMI FOWLERS POSITION WITH NO DISTRESS NOTED.
--- NOTE | 2021-04-07 11:54 | NUR ---
DECKHAND SPONGE BOAT NOTFIED BY JAZ LEONG THAT PT WAS IN AFIB BUT HAS GONE OUT. DR SANZ NOTIFIED.
--- NOTE | 2021-04-07 12:09 | NUR ---
DR ANTHONY AT BEDSIDE
--- NOTE | 2021-04-07 12:18 | NUR ---
PT RESTING IN SEMI FOWLERS POSITION. PT IS A/O X3. RESPIRATIONS ARE EVEN AND UNLABORED WITH NO DISTRESS NOTED. #20G LAC INFUSING WITH IVF PER ORDER, SITE REMAINS HEALTHY AND PATENT. PT DENIES OF ANY PAINS OR DISCOMFORTS AT THIS TIME. EKG ORDERED. ALL SAFETY AND ISOLATION PRECAUTIONS ARE IN PLACE WITH CALL LIGHT IN REACH. WILL CONTINUE TO MONITOR.
--- NOTE | 2021-04-07 12:20 | NUR ---
RT AT BEDSIDE COMPLETED EKG. EDWIN NOTIFIED OF RESULTS.
--- NOTE | 2021-04-07 13:04 | NUR ---
RECYLINER PROVIDED FOR PT. PT NASSISTED UP TO CHAIR. SCHEDULED MEDICATIONS ADMINISTERED. PT TOLERATED WELL. PT DENIES OF ANY NEEDS. ALL SAFETY PRECAUTIONS ARE IN PLACE. WILL CONTINUE TO MONITOR.
[2021-04-07 15:21] VITALS: BP 144/63
--- NOTE | 2021-04-07 16:24 | NUR ---
PT SLEEPING IN SEMI FOWLERS POSITION. RESPIRATIONS ARE EVEN AND UNLABORED WITH NO DISTRESS NOTED. #20G LAC INFUSING WITH IVF PER ORDER, SITE REMAINS HEALTHY AND PATENT. TELE MONITORING IN PLACE.NO SIGNS OF ANY PAINS OR DISCOMFORTS AT THIS TIME. ALL SAFETY PRECAUTIONS ARE IN PLACE WITH CALL LIGHT IN REACH. ALL SAFETY AND ISOLATION PRECAUTIONS ARE IN PLACE. WILL CONTINUE TO MONITOR.
--- NOTE | 2021-04-07 18:06 | NUR ---
CALLED ASKING FOR UPDATE. PASSCODE PROVIDED. UPDATE PROVIDED.
[2021-04-07 19:00] VITALS: BP 152/64
--- NOTE | 2021-04-07 19:00 | NUR ---
RECEIVED REPORT FROM NURSE RUVALCABA PATIENT LAYING IN BED, APPEARS TO BE SLEEPING BREATHING UNLABORED CALL LIGHT AT REACH.
--- NOTE | 2021-04-07 20:30 | NUR ---
PATIENT ALERT ORIENTED X 3 , ABLE TO MAKE NEEDS KNONW, WITH ONGOING IV NS @ 80CC/HR INFUSING WELL REMAINS ON TELE SR 81, OCCASIONAL NON PRODUCTIVE COUGH, LUNG SOUNDS DIMINISHED, LBM 6/7, ACTIVE BOWEL SOUNDS, DENIES PAIN AND BREATHING EVEN UNLABORED, CALL LIGHT AT REACH.
[2021-04-08] VITALS: BP 131/83
--- NOTE | 2021-04-08 | NUR ---
PATIENT AWAKE AT THIS TIME, SITTING ON THE BED, DENIES PAIN OR DISCOMFORTS BREATHING UNLABORED CALL LIGHT AT REACH.
[2021-04-08 04:00] VITALS: BP 141/72
--- NOTE | 2021-04-08 04:18 | NUR ---
PATIENT RESTING IN BED WITH EYES CLOSED, BREATHING EVEN UNLABORED, NO DISCOMFORTS NOTED AT THIS TIME CALL LIGHT AT [facility].
[2021-04-08 04:53] LABS: HEMATOCRIT 38.3 % (39.0-50.0); HEMOGLOBIN 12.7 g/dl (14.0-18.0); IMMATURE GRANULOCYTES 0.4 % (0.0-5.0); MEAN CELL VOLUME 91.2 fL CALC (80.0-100.0); MEAN CORPUSCULAR HGB 30.2 pG CALC (26.0-32.0); MEAN CORPUSCULAR HGB CONC 33.2 g/dL CAL (32.0-36.0); NEUT# 4.2 thou/uL (1.82-7.42); RED BLOOD COUNT 4.2 mill/uL (4.70-6.10); RED CELL DISTRI WIDTH 11.7 % (11.5-15.5)
[2021-04-08 05:21] LABS: ALBUMIN 3.2 g/dL (3.2-5.0); ALKALINE PHOSPHATASE 50 u/l (38-126); BUN 16 mg/dL (8-23); BUN/CREATININE RATIO 15 (12-20 (CALC)); C-REACTIVE PROTEIN 5.3 mg/dL (0-0.9); CHLORIDE 105 mmol/l (95-108); CREATININE 1.1 mg/dL (0.7-1.3); GFR > 60 ML/MIN (>=60 (CALC)); GFR FOR AFR.AMER. > 60 ML/MIN (>=60 (CALC)); POTASSIUM 4.7 mmol/l (3.5-5.1); SGOT/AST 36 u/l (19-48); SODIUM 133 mmol/l (137-146)
[2021-04-08 05:25] LABS: ANION GAP 12 (6-22 (CALC)); BILIRUBIN, TOTAL 0.2 mg/dL (0.0-1.4); CARBON DIOXIDE 21 mmol/l (22-30); TOTAL PROTEIN 5.9 g/dL (6.3-8.2)
[2021-04-08 08:32] VITALS: BP 141/58
--- NOTE | 2021-04-08 08:32 | NUR ---
PT SITTING IN BED. A&O X4. NO DISTRESS NOTED. PT REMAINS VIA ROOM AIR SUSTAINING 95-96%. PT DENIES ANY SOB. CLEAR BREATH SOUNDS UPON ASUCULTATION. ABRASIVES SALES REPRESENTATIVE IN PLACE. ACTIVE BOWEL SOUNDS X4 QUADRANTS. PT DENIES ANY DIARRHEA, REPORTS SMALL BM THIS AM. IV HEALTHY AND PATENT WITH IVF INFUSING PER MAR ORDERS. PT DENIES ANY PAIN AT THIS TIME. ASSESSMENT COMPLETED. DISCUSSED POC. CALL LIGT AND PERSONAL BELONGINGS WITHIN REACH.
[2021-04-08 10:25] VITALS: BP 127/60
[2021-04-08] MEDS ORDERED: DECADRON6 MG PO (12:01)
[2021-04-08] MEDS ORDERED: LEVAQUIN750 M1 PO (12:02)
--- NOTE | 2021-04-08 15:00 | NUR ---
PT D/C INSTRUCTIONS GIVEN. IV INTACT UPON REMOVAL.
--- NOTE | 2021-04-10 09:46 | NUR ---
Pneumonia post discharge follow up call completed . Spoke to of patient. She states patient is doing "fantastic". No fever, chills, vomiting, or SOB. Pt. istaking medication prescribedication prescribed at discharge without issue. Pt. needs a negative Covid 19 test prior to follow up appt, but will make one when he is cleared. Pt. wanted to convey his gratitude for the care received during admission. states he wanted everyone to know he received the best care he has ever gotten while at [facility] and he is extremely grateful.No questions or needs at this time. Appreciative of follow up call.
== END 2021-04-08 15:10 | disposition home or self-care (01) ==
LOC: ED 11:21 → ICU 14:30 → MS2 04-07 07:51
PROVIDERS: Emergency Medicine; ADMIT Internal Medicine; ATTEND Internal Medicine
DX: U07.1 COVID-19 (principal); J12.82 Pneumonia due to coronavirus disease 2019; I10 Essential (primary) hypertension; I25.10 Atherosclerotic heart disease of native coronary artery without angina pectoris; K21.9 Gastro-esophageal reflux disease without esophagitis; N40.0 Benign prostatic hyperplasia without lower urinary tract symptoms; I48.91 Unspecified atrial fibrillation; H40.9 Unspecified glaucoma; Z95.5 Presence of coronary angioplasty implant and graft; Z79.02 Long term (current) use of antithrombotics/antiplatelets; Z87.891 Personal history of nicotine dependence
CPT/HCPCS: G0378; J1650; Q9967

== ENCOUNTER 2021-04-21 13:36 | Emergency (ER) | payer MEDICARE ==
[~2021-04-21] VITALS: Ht 162.6 cm; Wt 79.5 kg
[~2021-04-21 13:36] MED LIST changes: +DECADRON6 MG PO; +LEVAQUIN750 M1 PO
[2021-04-21 14:22] VITALS: BP 148/63
[2021-04-21 14:31] LABS: HEMATOCRIT 38.7 % (39.0-50.0); HEMOGLOBIN 12.9 g/dl (14.0-18.0); IMMATURE GRANULOCYTES 0.2 % (0.0-5.0); MEAN CELL VOLUME 92.1 fL CALC (80.0-100.0); MEAN CORPUSCULAR HGB 30.7 pG CALC (26.0-32.0); MEAN CORPUSCULAR HGB CONC 33.3 g/dL CAL (32.0-36.0); NEUT# 6.76 thou/uL (1.82-7.42); RED BLOOD COUNT 4.2 mill/uL (4.70-6.10); RED CELL DISTRI WIDTH 12.3 % (11.5-15.5)
[2021-04-21 14:59] LABS: ALBUMIN 3.2 g/dL (3.2-5.0); CREATININE 1.5 mg/dL (0.7-1.3); POTASSIUM 4.4 mmol/l (3.5-5.1)
[2021-04-21 15:00] LABS: BILIRUBIN, TOTAL 0.7 mg/dL (0.0-1.4)
[2021-04-22] MEDS ORDERED: DOXYCYCLINE100 MG PO (20:58)
== END 2021-04-21 15:31 | disposition home or self-care (01) ==
LOC: ED 13:36
PROVIDERS: Family Medicine
DX: R41.3 Other amnesia (principal); I10 Essential (primary) hypertension; I25.10 Atherosclerotic heart disease of native coronary artery without angina pectoris; Z86.16 Personal history of COVID-19; Z95.5 Presence of coronary angioplasty implant and graft

== ENCOUNTER 2021-04-22 16:02 | Emergency (ER) | payer MEDICARE ==
[~2021-04-22] VITALS: Ht 162.6 cm; Wt 77.0 kg
[2021-04-22 16:50] LABS: HEMOGLOBIN 12.8 g/dl (14.0-18.0); IMMATURE GRANULOCYTES 0.7 % (0.0-5.0); MEAN CELL VOLUME 90.7 fL CALC (80.0-100.0); MEAN CORPUSCULAR HGB 30.5 pG CALC (26.0-32.0); MEAN CORPUSCULAR HGB CONC 33.7 g/dL CAL (32.0-36.0); NEUT# 3.48 thou/uL (1.82-7.42); RED BLOOD COUNT 4.19 mill/uL (4.70-6.10); RED CELL DISTRI WIDTH 12.2 % (11.5-15.5)
[2021-04-22 17:08] LABS: ALBUMIN 2.9 g/dL (3.2-5.0); BILIRUBIN, TOTAL 0.7 mg/dL (0.0-1.4); CREATININE 1.4 mg/dL (0.7-1.3); POTASSIUM 4.3 mmol/l (3.5-5.1); TOTAL PROTEIN 5.4 g/dL (6.3-8.2)
[2021-04-22 18:05] LABS: URINE BILIRUBIN - DIPSTICK NEGATIVE (NEGATIVE); URINE BLOOD DIPSTICK NEGATIVE (NEGATIVE); URINE COLOR YELLOW; URINE GLUCOSE - DIPSTICK NEGATIVE (NEGATIVE); URINE KETONE NEGATIVE (NEGATIVE); URINE LEUK ESTERASE NEGATIVE (NEGATIVE); URINE PH 7.5 (4.5-8.0); URINE PROTEIN - DIPSTICK 100 mg/dL (NEG-TRACE); URINE SPECIFIC GRAVITY 1.015; URINE UROBILINOGEN - DIPSTICK 0.2 E.U./dL (0.2)
[2021-04-22 18:06] LABS: URINE NITRITE - DIPSTICK NEGATIVE (Negative)
[2021-04-22] MEDS ORDERED: DOXYCYCLINE100 MG PO (20:58)
[2021-04-22 21:03] VITALS: BP 125/67
== END 2021-04-22 21:10 | disposition home or self-care (01) ==
LOC: ED 16:02
DX: J18.9 Pneumonia, unspecified organism (principal); E87.1 Hypo-osmolality and hyponatremia; K42.9 Umbilical hernia without obstruction or gangrene; I10 Essential (primary) hypertension; F17.200 Nicotine dependence, unspecified, uncomplicated
CPT/HCPCS: Q9967

== ENCOUNTER 2021-04-24 07:55 | Emergency (ER) | payer MEDICARE ==
[~2021-04-24] VITALS: Ht 162.6 cm; Wt 80.0 kg
[~2021-04-24 07:55] MED LIST changes: +DOXYCYCLINE100 MG PO
[2021-04-24 08:49] LABS: INTERNATIONAL NORMALIZED RATIO 4.4 RATIO (0.7-1.3); PROTHROMBIN TIME 44.5 SECONDS (9.0-12.5)
[2021-04-24 09:39] LABS: ALBUMIN 2.7 g/dL (3.2-5.0); BILIRUBIN, TOTAL 0.8 mg/dL (0.0-1.4); CREATININE 1.4 mg/dL (0.7-1.3); POTASSIUM 4.4 mmol/l (3.5-5.1); TOTAL PROTEIN 5.6 g/dL (6.3-8.2)
[2021-04-24 10:07] LABS: HEMATOCRIT 37.1 % (39.0-50.0); HEMOGLOBIN 12.8 g/dl (14.0-18.0); MEAN CELL VOLUME 87.9 fL CALC (80.0-100.0); MEAN CORPUSCULAR HGB 30.3 pG CALC (26.0-32.0); MEAN CORPUSCULAR HGB CONC 34.5 g/dL CAL (32.0-36.0); RED BLOOD COUNT 4.22 mill/uL (4.70-6.10); RED CELL DISTRI WIDTH 12.5 % (11.5-15.5)
[2021-04-24 10:36] VITALS: BP 112/58
[2021-04-24 10:37] LABS: IMMATURE GRANULOCYTES 1.2 % (0.0-5.0); NEUT# 2.57 thou/uL (1.82-7.42)
== END 2021-04-24 11:50 | disposition short-term general hospital (02) ==
LOC: ED 07:55
PROVIDERS: Emergency Medicine
DX: I48.91 Unspecified atrial fibrillation (principal); E87.1 Hypo-osmolality and hyponatremia; D69.3 Immune thrombocytopenic purpura; I10 Essential (primary) hypertension; F17.200 Nicotine dependence, unspecified, uncomplicated; Z20.822 Contact with and (suspected) exposure to COVID-19

== ENCOUNTER 2021-05-11 14:28 | Emergency (ER) | payer MEDICARE ==
[~2021-05-11] VITALS: Ht 162.6 cm; Wt 73.0 kg
[2021-05-11 14:43] VITALS: BP 137/66
== END 2021-05-11 16:22 | disposition home or self-care (01) ==
LOC: ED 14:28
DX: K59.00 Constipation, unspecified (principal); I10 Essential (primary) hypertension; I48.91 Unspecified atrial fibrillation; Z95.5 Presence of coronary angioplasty implant and graft

== ENCOUNTER 2021-05-23 19:15 | Emergency (ER) | payer MEDICARE ==
[~2021-05-23] VITALS: Ht 162.6 cm; Wt 73.0 kg
[2021-05-23] MEDS ORDERED: DECADRON2 MG PO (20:16)
[2021-05-23] MEDS ORDERED: CLINDAMYCIN300 M1 PO (20:17)
[2021-05-23] MEDS ORDERED: TOLTERODINE TART2 M1 PO (20:18)
[2021-05-23 21:09] LABS: URINE BILIRUBIN - DIPSTICK NEGATIVE (NEGATIVE); URINE BLOOD DIPSTICK NEGATIVE (NEGATIVE); URINE COLOR YELLOW; URINE GLUCOSE - DIPSTICK NEGATIVE (NEGATIVE); URINE KETONE NEGATIVE (NEGATIVE); URINE LEUK ESTERASE NEGATIVE (NEGATIVE); URINE NITRITE - DIPSTICK NEGATIVE (Negative); URINE PROTEIN - DIPSTICK NEGATIVE (NEG-TRACE); URINE UROBILINOGEN - DIPSTICK 0.2 E.U./dL (0.2)
[2021-05-23 21:10] LABS: HEMOGLOBIN 10.4 g/dl (14.0-18.0); IMMATURE GRANULOCYTES 0.1 % (0.0-5.0); MEAN CELL VOLUME 102.6 fL CALC (80.0-100.0); MEAN CORPUSCULAR HGB 33.3 pG CALC (26.0-32.0); MEAN CORPUSCULAR HGB CONC 32.5 g/dL CAL (32.0-36.0); NEUT# 3.71 thou/uL (1.82-7.42); RED BLOOD COUNT 3.12 mill/uL (4.70-6.10); RED CELL DISTRI WIDTH 17.9 % (11.5-15.5)
[2021-05-23 21:23] LABS: ALBUMIN 3.6 g/dL (3.2-5.0); ALKALINE PHOSPHATASE 101 u/l (38-126); ANION GAP 11 (6-22 (CALC)); BUN 15 mg/dL (8-23); BUN/CREATININE RATIO 11 (12-20 (CALC)); CARBON DIOXIDE 27 mmol/l (22-30); CHLORIDE 99 mmol/l (95-108); CREATININE 1.4 mg/dL (0.7-1.3); GFR 49 ML/MIN (>=60 (CALC)); GFR FOR AFR.AMER. 60 ML/MIN (>=60 (CALC)); POTASSIUM 3.9 mmol/l (3.5-5.1); SGOT/AST 50 u/l (19-48); SODIUM 133 mmol/l (137-146)
[2021-05-23 21:33] LABS: BILIRUBIN, TOTAL 0.1 mg/dL (0.0-1.4)
[2021-05-23 22:37] VITALS: BP 142/63
== END 2021-05-23 22:50 | disposition home or self-care (01) ==
LOC: ED 19:15
PROVIDERS: Emergency Medicine
DX: R53.1 Weakness (principal); I10 Essential (primary) hypertension; I48.91 Unspecified atrial fibrillation; D69.3 Immune thrombocytopenic purpura; R42 Dizziness and giddiness; Z86.16 Personal history of COVID-19

== ENCOUNTER 2021-05-25 11:57 | Emergency (ER) | payer MEDICARE ==
[~2021-05-25] VITALS: Ht 162.6 cm; Wt 68.0 kg
[~2021-05-25 11:57] MED LIST changes: +CLINDAMYCIN300 M1 PO; +DECADRON2 MG PO; +TOLTERODINE TART2 M1 PO
[2021-05-25 13:08] LABS: HEMATOCRIT 34.2 % (39.0-50.0); IMMATURE GRANULOCYTES 0.1 % (0.0-5.0); MEAN CELL VOLUME 102.4 fL CALC (80.0-100.0); MEAN CORPUSCULAR HGB 32.9 pG CALC (26.0-32.0); MEAN CORPUSCULAR HGB CONC 32.2 g/dL CAL (32.0-36.0); NEUT# 4.25 thou/uL (1.82-7.42); RED BLOOD COUNT 3.34 mill/uL (4.70-6.10); RED CELL DISTRI WIDTH 17.6 % (11.5-15.5)
[2021-05-25 13:19] LABS: ALBUMIN 3.5 g/dL (3.2-5.0); ALKALINE PHOSPHATASE 75 u/l (38-126); ANION GAP 11 (6-22 (CALC)); BILIRUBIN, TOTAL 0.2 mg/dL (0.0-1.4); BUN 13 mg/dL (8-23); BUN/CREATININE RATIO 11 (12-20 (CALC)); CARBON DIOXIDE 26 mmol/l (22-30); CHLORIDE 101 mmol/l (95-108); CREATININE 1.1 mg/dL (0.7-1.3); GFR > 60 ML/MIN (>=60 (CALC)); GFR FOR AFR.AMER. > 60 ML/MIN (>=60 (CALC)); LIPASE 277 u/l (23-300); SGOT/AST 51 u/l (19-48); SODIUM 134 mmol/l (137-146)
[2021-05-25 13:30] LABS: MYOGLOBIN 26 ng/mL (0 - 121)
[2021-05-25 19:45] VITALS: BP 127/65
== END 2021-05-25 19:45 ==
LOC: ED 11:57
PROVIDERS: Emergency Medicine
DX: R07.9 Chest pain, unspecified (principal); I25.10 Atherosclerotic heart disease of native coronary artery without angina pectoris; I10 Essential (primary) hypertension; I48.91 Unspecified atrial fibrillation; D69.3 Immune thrombocytopenic purpura; L03.115 Cellulitis of right lower limb; Z86.16 Personal history of COVID-19; Z95.5 Presence of coronary angioplasty implant and graft

== ENCOUNTER 2021-10-02 14:15 | Observation (INO) | payer MEDICARE ==
[~2021-10-02] VITALS: Ht 162.6 cm; Wt 86.0 kg
[2021-10-02] MEDS ORDERED: CLOPIDOGREL75 MG PO (14:35)
[2021-10-02] MEDS ORDERED: MECLIZINE25 MG PO (14:36)
[2021-10-02] MEDS ORDERED: ASPIRIN81 MG PO (14:36)
[2021-10-02] MEDS ORDERED: PRED FORTE1 % (14:37)
[2021-10-02 14:38] LABS: HEMATOCRIT 39.1 % (39.0-50.0); HEMOGLOBIN 12.7 g/dl (14.0-18.0); IMMATURE GRANULOCYTES 0.1 % (0.0-5.0); MEAN CELL VOLUME 93.3 fL CALC (80.0-100.0); MEAN CORPUSCULAR HGB 30.3 pG CALC (26.0-32.0); MEAN CORPUSCULAR HGB CONC 32.5 g/dL CAL (32.0-36.0); NEUT# 5.57 thou/uL (1.82-7.42); RED BLOOD COUNT 4.19 mill/uL (4.70-6.10); RED CELL DISTRI WIDTH 12.1 % (11.5-15.5)
[2021-10-02 15:02] LABS: ALBUMIN 4.2 g/dL (3.2-5.0); BILIRUBIN, TOTAL 0.4 mg/dL (0.0-1.4); CREATININE 1.5 mg/dL (0.7-1.3); TOTAL PROTEIN 7.2 g/dL (6.3-8.2)
[2021-10-02 15:03] LABS: POTASSIUM 3.9 mmol/l (3.5-5.1)
[2021-10-02 17:42] VITALS: BP 140/67
[2021-10-02 19:00] VITALS: BP 137/66
[2021-10-03 00:06] VITALS: BP 126/67
[2021-10-03 04:07] VITALS: BP 125/76
[2021-10-03 08:54] VITALS: BP 152/61
[2021-10-03] MEDS ORDERED: NITROSTAT0.4 MG SL (11:03)
[2021-10-03 11:27] VITALS: BP 141/68
[2021-10-03] MEDS ORDERED: PEPCID20 MG PO (11:40)
[2021-10-03 14:40] LABS: CHOLESTEROL HDL RATIO 4.3 (<4.4 (CALC)); MAGNESIUM 2.1 mg/dL (1.6-2.3)
== END 2021-10-03 13:47 | disposition home or self-care (01) ==
LOC: ED 14:15 → ED-I 15:11 → ED 15:25 → MS2 15:26
PROVIDERS: Family Medicine; ADMIT Internal Medicine; ATTEND Internal Medicine
DX: R07.9 Chest pain, unspecified (principal); I12.9 Hypertensive chronic kidney disease with stage 1 through stage 4 chronic kidney disease, or unspecified chronic kidney disease; N18.9 Chronic kidney disease, unspecified; I25.10 Atherosclerotic heart disease of native coronary artery without angina pectoris; I48.0 Paroxysmal atrial fibrillation; K21.9 Gastro-esophageal reflux disease without esophagitis; N40.0 Benign prostatic hyperplasia without lower urinary tract symptoms; D69.3 Immune thrombocytopenic purpura; Z86.16 Personal history of COVID-19; Z79.02 Long term (current) use of antithrombotics/antiplatelets; Z79.82 Long term (current) use of aspirin; Z87.891 Personal history of nicotine dependence; Z95.5 Presence of coronary angioplasty implant and graft; Z20.822 Contact with and (suspected) exposure to COVID-19
CPT/HCPCS: G0378

== ENCOUNTER 2022-01-01 01:53 | Emergency (ER) | payer MEDICARE ==
[~2022-01-01] VITALS: Ht 162.6 cm; Wt 85.0 kg
[~2022-01-01 01:53] MED LIST changes: +ASPIRIN81 MG PO; +NITROSTAT0.4 MG SL; +PRED FORTE1 %
[2022-01-01 02:31] LABS: HEMATOCRIT 40.6 % (39.0-50.0); HEMOGLOBIN 13.2 g/dl (14.0-18.0); IMMATURE GRANULOCYTES 0.1 % (0.0-5.0); MEAN CELL VOLUME 94.6 fL CALC (80.0-100.0); MEAN CORPUSCULAR HGB 30.8 pG CALC (26.0-32.0); MEAN CORPUSCULAR HGB CONC 32.5 g/dL CAL (32.0-36.0); NEUT# 4.59 thou/uL (1.82-7.42); RED BLOOD COUNT 4.29 mill/uL (4.70-6.10)
[2022-01-01] MEDS ORDERED: CHLORTABS (02:40)
[2022-01-01 02:45] LABS: ALBUMIN 4.1 g/dL (3.2-5.0); ALKALINE PHOSPHATASE 78 u/l (38-126); ANION GAP 13 (6-22 (CALC)); BUN 19 mg/dL (8-23); BUN/CREATININE RATIO 14 (12-20 (CALC)); CARBON DIOXIDE 22 mmol/l (22-30); CHLORIDE 107 mmol/l (95-108); CREATININE 1.4 mg/dL (0.7-1.3); GFR 49 ML/MIN (>=60 (CALC)); GFR FOR AFR.AMER. 60 ML/MIN (>=60 (CALC)); MAGNESIUM 2.1 mg/dL (1.6-2.3); SGOT/AST 31 u/l (19-48); SODIUM 138 mmol/l (137-146); TOTAL PROTEIN 6.8 g/dL (6.3-8.2)
[2022-01-01 02:46] LABS: BILIRUBIN, TOTAL 0.2 mg/dL (0.0-1.4)
[2022-01-01 03:30] VITALS: BP 134/66
[2022-01-01 04:00] VITALS: BP 138/66
[2022-01-01] MEDS ORDERED: LIDOCAINE21 MT (04:03)
[2022-01-01] MEDS ORDERED: [UNRECOGNIZED DRUG - OTHER] MT (04:03)
[2022-01-01 04:06] VITALS: BP 138/66
== END 2022-01-01 04:19 | disposition home or self-care (01) ==
LOC: ED 01:53
PROVIDERS: Emergency Medicine
DX: R12 Heartburn (principal); I12.9 Hypertensive chronic kidney disease with stage 1 through stage 4 chronic kidney disease, or unspecified chronic kidney disease; N18.9 Chronic kidney disease, unspecified; I48.0 Paroxysmal atrial fibrillation; K21.9 Gastro-esophageal reflux disease without esophagitis; Z86.16 Personal history of COVID-19; Z95.5 Presence of coronary angioplasty implant and graft

== ENCOUNTER 2022-11-30 09:04 | Emergency (ER) | payer MEDICARE ==
[~2022-11-30] VITALS: Ht 162.6 cm; Wt 75.0 kg
[~2022-11-30 09:04] MED LIST changes: +CHLORTABS; +LIDOCAINE21 MT; +[UNRECOGNIZED DRUG - OTHER] MT
[2022-11-30] MEDS ORDERED: PAXLOVID PO (11:23)
[2022-11-30 11:44] VITALS: BP 130/60
== END 2022-11-30 11:44 | disposition home or self-care (01) ==
LOC: ED 09:04
DX: U07.1 COVID-19 (principal); R05.9 Cough, unspecified; I12.9 Hypertensive chronic kidney disease with stage 1 through stage 4 chronic kidney disease, or unspecified chronic kidney disease; N18.9 Chronic kidney disease, unspecified; I48.0 Paroxysmal atrial fibrillation; D69.3 Immune thrombocytopenic purpura; K21.9 Gastro-esophageal reflux disease without esophagitis; Z95.5 Presence of coronary angioplasty implant and graft; Z86.16 Personal history of COVID-19

== ENCOUNTER 2024-10-18 07:18 | Observation (INO) | payer MEDICARE ==
[~2024-10-18] VITALS: Ht 162.6 cm; Wt 80.0 kg
[2024-10-18] VITALS (17 sets, daily range): BP systolic 116–165; BP diastolic 46–71
[~2024-10-18 07:18] MED LIST changes: +ACETAZOLAMIDE250 MG PO; +FAMOTIDINE20 M1 PO; +PAXLOVID PO
[2024-10-18 08:08] LABS: URINE BILIRUBIN - DIPSTICK Negative (NEGATIVE); URINE BLOOD DIPSTICK Negative (NEGATIVE); URINE GLUCOSE - DIPSTICK Negative (NEGATIVE); URINE KETONE Negative (NEGATIVE); URINE LEUK ESTERASE Negative (NEGATIVE); URINE NITRITE - DIPSTICK Negative (Negative); URINE PROTEIN - DIPSTICK Negative (NEG-TRACE); URINE SPECIFIC GRAVITY 1.015; URINE UROBILINOGEN - DIPSTICK 0.2 E.U./dL (0.2)
[2024-10-18 08:09] LABS: URINE COLOR Yellow
[2024-10-18 08:10] LABS: BASO% 0.6 % (0-3); EOS% 5.8 % (0-8); HEMATOCRIT 40.1 % (39.0-50.0); HEMOGLOBIN 12.8 g/dl (14.0-18.0); IMMATURE GRANULOCYTES 0.1 % (0.0-5.0); LYMPH% 19.9 % (15-41); MEAN CELL VOLUME 96.6 fL CALC (80.0-100.0); MEAN CORPUSCULAR HGB 30.8 pG CALC (26.0-32.0); MEAN CORPUSCULAR HGB CONC 31.9 g/dL CAL (32.0-36.0); MONO% 10.5 % (2-13); NEUT# 5.28 thou/uL (1.82-7.42); NEUT% 63.1 % (42-76); RED BLOOD COUNT 4.15 mill/uL (4.70-6.10); RED CELL DISTRI WIDTH 12.3 % (11.5-15.5)
[2024-10-18 08:28] LABS: ALBUMIN 4.1 g/dL (3.2-5.0); ALKALINE PHOSPHATASE 75 u/l (38-126); ANION GAP 14 (6-22 (CALC)); BILIRUBIN, TOTAL 0.4 mg/dL (0.2-1.3); BUN 22 mg/dL (8-23); BUN/CREATININE RATIO 12 (12-20 (CALC)); CARBON DIOXIDE 16 mmol/l (22-30); CHLORIDE 110 mmol/l (95-108); CREATININE 1.8 mg/dL (0.7-1.3); ESTIMATED GFR 38 ML/MIN (>=90 (CALC)); POTASSIUM 4.4 mmol/l (3.5-5.1); SGOT/AST 31 u/l (19-48); SODIUM 136 mmol/l (137-146); TOTAL PROTEIN 6.5 g/dL (6.3-8.2)
[2024-10-18] MEDS ORDERED: CARAFATE PO (10:41)
[2024-10-18] MEDS ORDERED: PRAVASTATIN40 MG PO (10:44)
[2024-10-18] MEDS ORDERED: B125000 MCG SL (10:48)
[2024-10-18] MEDS ORDERED: BENADRYL 25MG C25 MG PO (10:49)
[2024-10-18] MEDS ORDERED: LOTRISONE CREAM15 G1 EX (10:49)
[2024-10-18] MEDS ORDERED: ACETAMINOPHEN 325 MG/TAB PO PRN (13:20)
[2024-10-18] MEDS ORDERED: SODIUM CHLORIDE 0.9% 1,000 ML IV PRN (13:20)
[2024-10-18] MEDS ORDERED: MAGNESIUM HYDROXIDE 30 ML UDC PO PRN (13:20)
[2024-10-18] MEDS ORDERED: Zaleplon 5 MG/CAP PO PRN (13:20)
[2024-10-18] MEDS ORDERED: MECLIZINE HCL 25 MG/TAB PO SCH (15:00)
[2024-10-18] MEDS ORDERED: ENOXAPARIN SODIUM 40 MG/0.4 ML SYR SC SCH (21:00)
[2024-10-18] MEDS ORDERED: SUCRALFATE 1 GM/TAB PO SCH (21:00)
[2024-10-19] VITALS: BP 125/52
[2024-10-19 04:00] VITALS: BP 122/52
[2024-10-19 04:24] VITALS: BP 122/52
[2024-10-19 06:05] LABS: BASO% 0.4 % (0-3); EOS% 6.3 % (0-8); HEMATOCRIT 39.1 % (39.0-50.0); HEMOGLOBIN 12.5 g/dl (14.0-18.0); LYMPH% 18.4 % (15-41); MEAN CELL VOLUME 96.1 fL CALC (80.0-100.0); MEAN CORPUSCULAR HGB 30.7 pG CALC (26.0-32.0); MONO% 8.9 % (2-13); NEUT# 4.62 thou/uL (1.82-7.42); RED BLOOD COUNT 4.07 mill/uL (4.70-6.10); RED CELL DISTRI WIDTH 12.3 % (11.5-15.5)
[2024-10-19 06:16] LABS: ALBUMIN 3.6 g/dL (3.2-5.0); BILIRUBIN, TOTAL 0.4 mg/dL (0.2-1.3); CREATININE 1.6 mg/dL (0.7-1.3); MAGNESIUM 2.2 mg/dL (1.6-2.3); POTASSIUM 4.1 mmol/l (3.5-5.1)
[2024-10-19 06:32] VITALS: BP 127/53
[2024-10-19] MEDS ORDERED: CLOPIDOGREL BISULFATE 75 MG/TAB TAB PO SCH (09:00)
[2024-10-19] MEDS ORDERED: PANTOPRAZOLE SODIUM Sesquihydr 40 MG/TAB PO SCH (09:00)
[2024-10-19] MEDS ORDERED: ASPIRIN 81 MG/TAB PO SCH (09:00)
[2024-10-19 10:28] VITALS: BP 145/47
[2024-10-19] MEDS ORDERED: BACTRIM DS1 TAB PO (12:22)
== END 2024-10-19 13:31 | disposition home or self-care (01) ==
LOC: ED 07:18 → ED-I 10:19 → ED 10:33 → MS2 10:34
PROVIDERS: Family Medicine; ADMIT Internal Medicine; ATTEND Internal Medicine
DX: R55 Syncope and collapse (principal); J32.0 Chronic maxillary sinusitis; I12.9 Hypertensive chronic kidney disease with stage 1 through stage 4 chronic kidney disease, or unspecified chronic kidney disease; N18.9 Chronic kidney disease, unspecified; I48.0 Paroxysmal atrial fibrillation; I25.10 Atherosclerotic heart disease of native coronary artery without angina pectoris; D69.3 Immune thrombocytopenic purpura; N40.0 Benign prostatic hyperplasia without lower urinary tract symptoms; K21.9 Gastro-esophageal reflux disease without esophagitis; E78.5 Hyperlipidemia, unspecified; Z85.46 Personal history of malignant neoplasm of prostate; Z92.3 Personal history of irradiation; Z95.5 Presence of coronary angioplasty implant and graft; Z88.9 Allergy status to unspecified drugs, medicaments and biological substances
CPT/HCPCS: G0378; J1650